=== PATIENT | male | born 1955 | race Caucasian/White ===

== ENCOUNTER 2023-08-22 14:04 | Outpatient (AMB) | payer OTHER, SELFPAY ==
--- NOTE | 2023-08-22 14:12 | A.OFFPC_ITS ---
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 Needs all medications refilled, along with one touch test strips and lancets. Vp Patient Required: No Allergies No Known Allergies Allergy (Verified 08/22/23 14:13) Medication List - Last Reconciled 08/22/23 by Negra Dodd MD apixaban (Eliquis) 5 mg PO BID aspirin 81 mg PO DAILY azelastine intranasal chlorthalidone 25 mg PO DAILY cholecalciferol (vitamin D3) 25 mcg PO DAILY ezetimibe 10 mg PO DAILY fluticasone propionate 50 mcg/actuation sprays intranasal gabapentin 800 mg PO TID multivitamin 1 tab PO DAILY rosuvastatin 40 mg PO DAILY semaglutide (Ozempic) mg subcut tamsulosin 0.4 mg PO DAILY Tobacco use date assessed: 08/22/23 Fall risk assessment: 2 + Falls in past year Last assessed Fall Risk: 08/22/23 Dental Screening Dental Screen Date: 08/22/23 Did you have a dental visit in the last 12 months?: Yes Did you have a dental problem in the last 6 months where you did not have access to dental care?: No Was dental information given to patient?: Patient has dentist HPI HPI Comments History of Present Illness Details The patient is a 68 year old male with a past medical history of diet controlled type 2 DM, history of ?TIA, htn, hld, BPH, DEVIN, DDD LS spine, neck, presenting for follow up Chronic pain -DDD lumbar spine. Issues with low back pain, sciatica. Has seen NS, PM&R. He responds well to short steroid course when symptoms flare. -Cervical DD-h/o MRI 2018 with severe bi lateral foraminal stenosis C6-C7. -Shoulder pain: MRI with partial rotator cuff tears, AC joint widening. Undwent shoulder repair. A few months later felt like he moved it out of place. Pain levels have decreased over the past few months CV: Afib on ILR. Follows with cardiology. Placed on AC. BP soft. Reports sometimes lightheaded upon standing. No recent leg or ankle swelling Neuro: Previous worry and worsening memory, dysarthria. In 2019 had what was later thought to be a TIA. When he was walking he saw flashes of light. He had suddenly developed weakness in the right leg. This persisted for 8 months before resolving. Saw 2 neurologist-MRI reviewed and a few small vessel T2 lesions, 1 in basal ganglia, cervical MRI, chem, CBC lyme, ESR, MARIA ISABEL. LS MRI with DJD. 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 In absence of motor weakness and with continue dysarthria and fatigue presumed TIA ROS CONSTITUTIONAL: Denies weight loss, fever and chills. HEENT: Denies changes in vision and hearing. RESPIRATORY: Denies SOB and cough. CV: Denies palpitations and CP GI: Denies abdominal pain, nausea, vomiting and diarrhea. : Denies dysuria and urinary frequency. MSK: Denies new myalgia and joint pain. SKIN: Denies rash and pruritus. NEUROLOGICAL: Denies headache PSYCHIATRIC: Denies recent changes in mood. PHYSICAL EXAM: GENERAL: Alert and oriented x 3. NAD EYES: EOMI. Anicteric. HENT: Moist mucous membranes. No scleral icterus. No cervical lymphadenopathy. LUNGS: Clear to auscultation bilaterally. CARDIOVASCULAR: Regular rate and rhythm. No murmur. No JVD. ABDOMEN: Soft, non-tender +bs EXTREMITIES: No edema. Non-tender. SKIN: No rashes or lesions. Warm. NEUROLOGIC: No focal neurological deficits. CN II-XII grossly intact PSYCHIATRIC: Cooperative. Appropriate mood and affect [facility] Medical History (Updated 08/23/23 @ 15:24 by Negra Dodd MD) Type 2 diabetes mellitus Sternoclavicular sprain Polyneuropathy Persistent cough DEVIN (obstructive sleep apnea) Obesity, Class I, BMI 30-34.9 HTN (hypertension) Hyperlipemia Erectile dysfunction DDD (degenerative disc disease), cervical Cervical radiculitis BPH (benign prostatic hyperplasia) Afib Arthritis Surgical History (Updated 08/22/23 @ 14:33 by Jania Huizar CMA) History of total right knee replacement Status post left knee replacement Hx of colonoscopy Social History (Updated 08/22/23 @ 14:32 by Jania Huizar CMA) Housing: House Patient Tobacco Use Status: Never used Tobacco e-Cigarette/Vaping Use: Never Used Second Hand Smoke Exposure: Yes service: Yes Current occupational status: employed 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 1. Little interest or pleasure in doing things: not at all 2. Feeling down, depressed, or hopeless: not at all 3. Trouble falling or staying asleep, or sleeping too much: not at all 4. Feeling tired or having little energy: not at all 5. Poor appetite or overeating: not at all 6. Feeling bad about yourself - or that you are a failure or have let yourself or your family down: not at all 7. Trouble concentrating on things, such as reading the newspaper or watching television: not at all 8. Moving or speaking so slowly that other people could have noticed. Or the opposite - being so fidgety or restless that you have been moving around a lot more than usual: not at all 9. Thoughts that you would be better off or of hurting yourself in some way: not at all Total score: 0 Depression Screening Interpretation: Negative (neg) Depression Screening Done: Yes 05602 - PHQ-9 Billing: Yes Source: Developed by Drs. Lopez Maxwell, Cristela Gunderson, Yung Arreola and colleagues, with an educational heydi from [employer]. Thrive Questionnaire Date Thrive assessed: 08/22/23 I am a: Patient What is your living situation today?: I have a steady place to live Within the past 12 months, did the food you bought not last and you didn't have the money to get more?: Never true Within the past 12 months, did you worry whether your food would run out before you got money to buy more?: Never true Do you have trouble paying for medicines?: No Do you have trouble getting transportation to medical appointments?: No Do you have trouble paying your heating and electricity bill?: No Do you have trouble taking care of your child, family member or friend?: No Do you have trouble with day-to-day activities such as bathing, preparing meals, shopping, managing finances, etc.?: No Are you currently unemployed and looking for a job?: No Are you interested in more education?: No Please select the resources that you would like help with: None Currently or been in a relationship where the following occur: no concerns reported THRIVE Score: 0 AUDIT C Alcohol Use Questionnaire (AUDIT-C) 1. How often do you have a drink containing alcohol?: Never (past) 3. How often do you have six or more drinks on one occasion?: Never Total Score: 0 VERENICE-7 AMB Questionnaire VERENICE-7 Date VERENICE - 7 assessed: 08/22/23 Feeling nervous, anxious, or on edge: 0 = Not at all Not being able to stop or control worryin = Not at all Worrying too much about different things: 0 = Not at all Trouble relaxin = Not at all Being so restless that it is hard to sit still: 0 = Not at all Becoming easily annoyed or irritable: 0 = Not at all Feeling afraid as if something awful might happen: 0 = Not at all Total VERENICE-7 score (0-4 normal; 5-9 mild; 10-14 moderate; 15-21 severe): 0 Source: Developed by Drs. Lopez Maxwell, Cristela Gunderson, Yung Arreola and colleagues, with an educational heydi from [employer]. VERENICE-7 Assessment Billing VERENICE-7 Assessment Tool: VERENICE-7 Assessment 51917 Physical exam (Primary Care) Vital Signs: Last Vital Signs Temp 98.4 F 08/22/23 14:23 Pulse 70 08/22/23 14:23 Resp 14 08/22/23 14:23 BP 96/70 08/22/23 14:23 Pulse Ox 96 08/22/23 14:23 Oxygen Delivery Method Room Air 08/22/23 14:23 BMI result Body Mass Index 44.1 Tobacco/Smoking Status: Tobacco use Status Tobacco use date assessed 08/22/23 08/22/23 14:20 Patient Tobacco Use Status Never used Tobacco 08/22/23 14:32 e-Cigarette/Vaping Use Never Used 08/22/23 14:32 PHQ-9: PHQ-9 Score PHQ-9: Total score 0 08/22/23 15:01 Depression Screening Interpretation: Negative (neg) Thrive Assessment: Date of Thrive Assessment Date Thrive assessed 08/22/23 08/22/23 14:35 Currently or been in a relationship where the following occur: no concerns reported Assessment and Plan Assessment & Plan (1) Type 2 diabetes mellitus: Code(s): E11.9 - Type 2 diabetes mellitus without complications Qualifiers: Diabetes mellitus joint terminal attack controller insulin use: without joint terminal attack controller use Diabetes mellitus complication status: with other specified complication Qualified Code(s): E11.69 - Type 2 diabetes mellitus with other specified complication Plan: Controlled. Increase ozempic hopefully will impart some additional weight loss (2) Paroxysmal atrial fibrillation: Code(s): I48.0 - Paroxysmal atrial fibrillation Plan: referral for consideration of watchman (3) HTN (hypertension): Code(s): I10 - Essential (primary) hypertension Qualifiers: Hypertension type: primary hypertension Qualified Code(s): I10 - Essential (primary) hypertension (4) Erectile dysfunction: Code(s): N52.9 - Male erectile dysfunction, unspecified Qualifiers: Erectile dysfunction type: due to other secondary cause Qualified Code(s): N52.1 - Erectile dysfunction due to diseases classified elsewhere Plan: stable (5) Type 2 diabetes, controlled, with peripheral neuropathy: Code(s): E11.42 - Type 2 diabetes mellitus with diabetic polyneuropathy Plan: stable on gabapentin (6) Type 2 diabetes, controlled, with peripheral circulatory disorder: Code(s): E11.51 - Type 2 diabetes mellitus with diabetic peripheral angiopathy without gangrene Orders: Orders Hemoglobin A1c 08/22/23 E11.9 - Type 2 diabetes mellitus without complications, E78.5 - Hyperlipidemia, unspecified, I10 - Essential (primary) hypertension, I48.0 - Paroxysmal atrial fibrillation Comprehensive Met. Panel 08/22/23 E11.9 - Type 2 diabetes mellitus without complications, E78.5 - Hyperlipidemia, unspecified, I10 - Essential (primary) hy pertension, I48.0 - Paroxysmal atrial fibrillation Microalbumin, Random (w Creat) 08/22/23 E11.9 - Type 2 diabetes mellitus without complications, E78.5 - Hyperlipidemia, unspecified, I10 - Essential (primary) hypertension, I48.0 - Paroxysmal atrial fibrillation Lipid Panel 08/22/23 E11.9 - Type 2 diabetes mellitus without complications, E78.5 - Hyperlipidemia, unspecified, I10 - Essential (primary) hypertension, I48.0 - Paroxysmal atrial fibrillation Prostate Specific Antigen 08/22/23 E11.9 - Type 2 diabetes mellitus without complications, E78.5 - Hyperlipidemia, unspecified, I10 - Essential (primary) hypertension, I48.0 - Paroxysmal atrial fibrillation Complete Blood Count Auto Diff 08/22/23 E11.9 - Type 2 diabetes mellitus without complications, E78.5 - Hyperlipidemia, unspecified, I10 - Essential (primary) hypertension, I48.0 - Paroxysmal atrial fibrillation Referrals Cardiology Referral I48.0 - Paroxysmal atrial fibrillation Medications: New apixaban (Eliquis) 5 mg PO BID 90 tabs 3RF azelastine 2 sprays intranasal DAILY 30 days 30 mL 3RF ezetimibe 10 mg PO DAILY 90 tabs 3RF gabapentin 800 mg PO TID 90 days 270 tabs 3RF chlorthalidone 25 mg PO DAILY 90 days 90 tabs 3RF fluticasone propionate 50 mcg/actuation 2 sprays intranasal DAILY 30 days 16 grams 3RF rosuvastatin 40 mg PO DAILY 90 days 90 tabs 3RF tamsulosin 0.4 mg PO DAILY 90 days 90 caps 3RF semaglutide 1 mg (0.75 mL) subcut QWEEK 9 mL 3RF Coding Level of Care Code Tele Est Pt Level 5 (59276) Complex EM visit Add On G2211 Diagnoses Type 2 diabetes mellitus with other specified complication, without long-term current use of insulin E11.69 Diabetes mellitus joint terminal attack controller insulin use: without joint terminal attack controller use Diabetes mellitus complication status: with other specified complication Paroxysmal atrial fibrillation I48.0 Primary hypertension I10 Hypertension type: primary hypertension Erectile dysfunction due to diseases classified elsewhere N52.1 Erectile dysfunction type: due to other secondary cause Type 2 diabetes, controlled, with peripheral neuropathy E11.42 Type 2 diabetes, controlled, with peripheral circulatory disorder E11.51 Additional Codes VERENICE-7 Assessment Billing - VERENICE-7 Assessment Tool: VERENICE-7 Assessment 26142 ([id number]) Time Spent (min) 47
[2023-08-22 14:23] VITALS: BP 96/70; PULSE 70; RESP 14; TEMP 36.9; O2SAT 96; BMI 44.1
== END 2023-08-22 15:06 | disposition home or self-care (01) ==
PROVIDERS: Visit Provider Internal Medicine
DX: E11.69 Type 2 diabetes mellitus with other specified complication (principal); E11.42 Type 2 diabetes mellitus with diabetic polyneuropathy; I48.0 Paroxysmal atrial fibrillation; E11.51 Type 2 diabetes mellitus with diabetic peripheral angiopathy without gangrene; I10 Essential (primary) hypertension; N52.1 Erectile dysfunction due to diseases classified elsewhere
CPT/HCPCS: 99215; G2211

== ENCOUNTER 2023-11-13 15:03 | Outpatient (REF) | payer OTHER, SELFPAY ==
[2023-11-13 18:17] LABS: Creatinine Urine 117.26 mg/dL; Microalbum/Creatinine Ratio Ur 5.9 ug/mg cr (<30)
[2023-11-13 22:44] LABS: MANUAL DIFF FLAG NO
[2023-11-13 22:47] LABS: Basophils Absolute Auto 0.1 X10*3/uL (0.0-0.2); Basophils Percent Auto 1.3 % (0-2); Eosinophils Absolute Auto 0.5 X10*3/uL (0.0-0.4); Eosinophils Percent Auto 7.7 % (0-4); Hematocrit 40.6 % (42.0-52.0); Hemoglobin 13.7 g/dl (14.0-18.0); Imm Gran Abs Auto 0.02 X10*3/uL (0.00-0.03); Imm Gran Pct Auto 0.3 % (0.0-0.4); Lymphocytes Absolute Auto 1.9 X10*3/uL (1.2-4.9); Lymphocytes Percent Auto 30.6 % (20-40); Mean Corpuscular HGB Conc 33.7 g/dl (31.0-36.0); Mean Corpuscular Hemoglobin 30.6 pg (27.0-33.0); Mean Corpuscular Volume 90.6 fL (80.0-98.0); Mean Platelet Volume 9.6 fL (9.4-12.4); Monocytes Absolute Auto 0.6 X10*3/uL (0.1-1.2); Monocytes Percent Auto 10.2 % (2-11); Neutrophils Percent Auto 49.9 % (45-73); Platelet Count 279 X10*3/uL (160-400); Red Blood Count 4.48 X10*6/uL (4.60-5.80); Red Cell Distribution Width 12.9 % (11.0-16.0); White Blood Count 6.1 X10*3/uL (4.8-10.8)
[2023-11-14 05:31] LABS: Estimated Average Glucose 126 mg/dL
== END 2023-11-13 15:04 | disposition home or self-care (01) ==
LOC: HO.WFDLDS 15:03
PROVIDERS: Visit Provider Internal Medicine
DX: I48.0 Paroxysmal atrial fibrillation (principal); E11.9 Type 2 diabetes mellitus without complications; I10 Essential (primary) hypertension; E78.5 Hyperlipidemia, unspecified
CPT/HCPCS: 36415; 82043; 82570; 83036; 85025

== ENCOUNTER 2023-11-14 14:32 | Outpatient (AMB) | payer OTHER, SELFPAY ==
--- NOTE | 2023-11-14 14:35 | A.OFFPC_ITS ---
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 Chronic neuropathy. Eye exam up to date Chronic pain -DDD lumbar spine. Issues with low back pain, sciatica. Has seen NS, PM&R. He responds well to short steroid course when symptoms flare. -Cervical DD-h/o MRI 2018 with severe bi lateral foraminal stenosis C6-C7. -Shoulder pain: MRI with partial rotator cuff tears, AC joint widening. Undwent shoulder repair. A few months later felt like he moved it out of place. Pain levels have decreased over the past few months CV: Afib on ILR. Follows with cardiology. Placed on AC. BP soft. Reports sometimes lightheaded upon standing. No recent leg or ankle swelling Neuro: Previous worry and worsening memory, dysarthria. In 2019 had what was later thought to be a TIA. When he was walking he saw flashes of light. He had suddenly developed weakness in the right leg. This persisted for 8 months before resolving. Saw 2 neurologist-MRI reviewed and a few small vessel T2 lesions, 1 in basal ganglia, cervical MRI, chem, CBC lyme, ESR, MARIA ISABEL. LS MRI with DJD. 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 In absence of motor weakness and with continue dysarthria and fatigue presumed TIA ROS CONSTITUTIONAL: Denies weight loss, fever and chills. HEENT: Denies changes in vision and hearing. RESPIRATORY: Denies SOB and cough. CV: Denies palpitations and CP GI: Denies abdominal pain, nausea, vomiting and diarrhea. : Denies dysuria and urinary frequency. MSK: Denies new myalgia and joint pain. SKIN: Denies rash and pruritus. NEUROLOGICAL: Denies headache PSYCHIATRIC: Denies recent changes in mood. PHYSICAL EXAM: GENERAL: Alert and oriented x 3. NAD EYES: EOMI. Anicteric. HENT: Moist mucous membranes. No scleral icterus. No cervical lymphadenopathy. LUNGS: Clear to auscultation bilaterally. CARDIOVASCULAR: Regular rate and rhythm. No murmur. No JVD. ABDOMEN: Soft, non-tender +bs EXTREMITIES: No edema. Non-tender. SKIN: No rashes or lesions. Warm. NEUROLOGIC: No focal neurological deficits. CN II-XII grossly intact PSYCHIATRIC: Cooperative. Appropriate mood and affect [facility] Medical History (Updated 11/19/23 @ 10:51 by Negra Dodd MD) Type 2 diabetes mellitus Sternoclavicular sprain Polyneuropathy Persistent cough DEVIN (obstructive sleep apnea) Obesity, Class I, BMI 30-34.9 HTN (hypertension) Hyperlipemia Erectile dysfunction DDD (degenerative disc disease), cervical Cervical radiculitis BPH (benign prostatic hyperplasia) Afib Arthritis Surgical History (Updated 08/22/23 @ 14:33 by Jania Huizar CMA) History of total right knee replacement Status post left knee replacement Hx of colonoscopy Social History (Updated 08/22/23 @ 14:32 by Jania Huizar CMA) Housing: House Patient Tobacco Use Status: Never used Tobacco e-Cigarette/Vaping Use: Never Used Second Hand Smoke Exposure: Yes service: Yes Current occupational status: employed 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 [employer] Current occupational exposures/hazards: No Cognitive needs: No Hearing needs: No Vision needs: No Questionnaire Thrive Questionnaire Date Thrive assessed: 08/22/23 I am a: Patient What is your living situation today?: I choose not to answer this question Within the past 12 months, did the food you bought not last and you didn't have the money to get more?: I choose not to answer this question Within the past 12 months, did you worry whether your food would run out before you got money to buy more?: I choose not to answer this question Do you have trouble paying for medicines?: I choose not to answer this question Do you have trouble getting transportation to medical appointments?: I choose not to answer this question Do you have trouble paying your heating and electricity bill?: I choose not to answer this question Do you have trouble taking care of your child, family member or friend?: I choose not to answer this question Do you have trouble with day-to-day activities such as bathing, preparing meals, shopping, managing finances, etc.?: I choose not to answer this question Are you currently unemployed and looking for a job?: I choose not to answer this question Are you interested in more education?: I choose not to answer this question Please select the resources that you would like help with: None Currently or been in a relationship where the following occur: I choose not to answer THRIVE Score: 0 AUDIT C Alcohol Use Questionnaire (AUDIT-C) 1. How often do you have a drink containing alcohol?: Never Total Score: 0 VERENICE-7 AMB Questionnaire VERENICE-7 Date VERENICE - 7 assessed: 08/22/23 Feeling nervous, anxious, or on edge: 0 = Not at all Not being able to stop or control worryin = Not at all Worrying too much about different things: 0 = Not at all Trouble relaxin = Not at all Being so restless that it is hard to sit still: 0 = Not at all Becoming easily annoyed or irritable: 0 = Not at all Feeling afraid as if something awful might happen: 0 = Not at all Total VERENICE-7 score (0-4 normal; 5-9 mild; 10-14 moderate; 15-21 severe): 0 Source: Developed by Drs. Lopez Maxwell, Cristela Gunderson, Yung Arreola and colleagues, with an educational heydi from [employer]. Physical exam (Primary Care) Vital Signs: Last Vital Signs Temp 97.7 F 11/14/23 14:43 Pulse 63 11/14/23 14:43 Resp 16 11/14/23 14:43 BP 124/80 11/14/23 14:43 Pulse Ox 98 11/14/23 14:43 Oxygen Delivery Method Room Air 11/14/23 14:43 Tobacco/Smoking Status: Tobacco use Status Tobacco use date assessed 11/14/23 11/14/23 14:46 Patient Tobacco Use Status Never used Tobacco 11/14/23 14:35 e-Cigarette/Vaping Use Never Used 11/14/23 14:35 Thrive Assessment: Date of Thrive Assessment Date Thrive assessed 08/22/23 11/14/23 14:35 Currently or been in a relationship where the following occur: I choose not to answer Assessment and Plan Assessment & Plan (1) Type 2 diabetes, controlled, with peripheral neuropathy: Code(s): E11.42 - Type 2 diabetes mellitus with diabetic polyneuropathy Plan: Controlled on current medication. (2) HTN (hypertension): Code(s): I10 - Essential (primary) hypertension Qualifiers: Hypertension type: primary hypertension Qualified Code(s): I10 - Essential (primary) hypertension Plan: controlled on current medication (3) Lumbar radiculopathy: Code(s): M54.16 - Radiculopathy, lumbar region Plan: stable. chronic neuropathy pain Orders: Orders Hemoglobin A1c 3 Months E11.51 - Type 2 diabetes mellitus with diabetic peripheral angiopathy without gangrene, I10 - Essential (primary) hypertension Coding Level of Care Code Est Pt Level 4 (13148) Complex EM visit Add On G2211 Diagnoses Type 2 diabetes, controlled, with peripheral neuropathy E11.42 Primary hypertension I10 Hypertension type: primary hypertension Lumbar radiculopathy M54.16
[2023-11-14 14:43] VITALS: BP 124/80; PULSE 63; RESP 16; TEMP 36.5; O2SAT 98
== END 2023-11-14 15:11 | disposition home or self-care (01) ==
PROVIDERS: Visit Provider Internal Medicine
DX: E11.42 Type 2 diabetes mellitus with diabetic polyneuropathy (principal); I10 Essential (primary) hypertension; M54.16 Radiculopathy, lumbar region
CPT/HCPCS: 99214; G2211

== ENCOUNTER 2024-02-15 07:42 | Outpatient (REF) | payer OTHER, SELFPAY ==
[2024-02-15 11:46] LABS: Estimated Average Glucose 123 mg/dL; Hemoglobin A1c % 5.9 % (<6.0); Total Hemoglobin (HGBA1C) 3746.0837 umol/L
[2024-02-15 12:09] LABS: Prostate Specific Antigen 1.13 ng/mL (<0.05-4.0)
[2024-02-15 12:14] LABS: Alanine Aminotransferase 47 U/L (0-40); Albumin Level 4.1 g/dL (3.5-5.0); Alkaline Phosphatase 60 U/L (39-117); Anion Gap 12 (12-20); Aspartate Amino Transferase 46 U/L (5-37); Bilirubin Total 0.6 mg/dL (0.0-1.0); Blood Urea Nitrogen 16 mg/dL (9-16); Calcium 11.1 mg/dL (8.4-10.2); Carbon Dioxide 30 mmol/L (22-29); Chloride 103 mmol/L (96-108); Cholesterol 150 mg/dL (<200); Estimated Glomerular Filt Rate > 60; Glucose Random 129 mg/dL (60-115); HDL Cholesterol 41 mg/dL (>40); LDL Cholesterol Calculated 84 mg/dL (<100); Potassium 3.7 mmol/L (3.3-5.1); Sodium 141 mmol/L (135-145); Total Protein 7.5 g/dL (6.5-8.0); Triglycerides 126 mg/dL (<150)
== END 2024-02-15 07:43 | disposition home or self-care (01) ==
LOC: HO.WFDLDS 07:42
PROVIDERS: Visit Provider Internal Medicine
DX: I48.0 Paroxysmal atrial fibrillation (principal); E11.9 Type 2 diabetes mellitus without complications; I10 Essential (primary) hypertension; E78.5 Hyperlipidemia, unspecified; E11.51 Type 2 diabetes mellitus with diabetic peripheral angiopathy without gangrene; Z12.5 Encounter for screening for malignant neoplasm of prostate
CPT/HCPCS: 36415; 80053; 80061; 83036; 84153

== ENCOUNTER 2024-02-23 09:23 | Outpatient (AMB) | payer OTHER, SELFPAY ==
--- NOTE | 2024-02-23 09:32 | MHC.PC.OV ---
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 Chronic neuropathy. Eye exam up to date Chronic pain -DDD lumbar spine. Issues with low back pain, sciatica. Has seen NS, PM&R. He responds well to short steroid course when symptoms flare. -Cervical DD-h/o MRI 2019 with severe bilateral foraminal stenosis C6-C7. -Shoulder pain: MRI with partial rotator cuff tears, AC joint widening. Undwent shoulder repair. A few months later felt like he moved it out of place. Pain levels have decreased over the past few months CV: Found Afib on ILR. Follows with cardiology. On AC Placed on AC. BP soft. Reports sometimes lightheaded upon standing. No recent leg or ankle swelling Neuro: Previous worry and worsening memory, dysarthria. In 2019 had what was later thought to be a TIA. When he was walking he saw flashes of light. He had suddenly developed weakness in the right leg. This persisted for 8 months before resolving. Saw 2 neurologist-MRI reviewed and a few small vessel T2 lesions, 1 in basal ganglia, cervical MRI, chem, CBC lyme, ESR, MARIA ISABEL. LS MRI with DJD. 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 In absence of motor weakness and with continue dysarthria and fatigue presumed TIA Some bilateral foot pain. upcoming appt with [facility] Abdominal pain and bloating. Increased with coughing, no constipation ROS see HPI PHYSICAL EXAM: GENERAL: Alert and oriented x 3. NAD EYES: EOMI. Anicteric. HENT: Moist mucous membranes. No scleral icterus. No cervical lymphadenopathy. LUNGS: Clear to auscultation bilaterally. CARDIOVASCULAR: Regular rate and rhythm. No murmur. No JVD. ABDOMEN: Soft, mild tender to palpation +bs EXTREMITIES: No edema. Non-tender. SKIN: No rashes or lesions. Warm. NEUROLOGIC: No focal neurological deficits. CN II-XII grossly intact PSYCHIATRIC: Cooperative. Appropriate mood and affect [facility] Medical History Type 2 diabetes mellitus Sternoclavicular sprain Polyneuropathy Persistent cough DEVIN (obstructive sleep apnea) Obesity, Class I, BMI 30-34.9 HTN (hypertension) Hyperlipemia Erectile dysfunction DDD (degenerative disc disease), cervical Cervical radiculitis BPH (benign prostatic hyperplasia) Afib Arthritis Surgical History History of total right knee replacement Status post left knee replacement Hx of colonoscopy Social History Housing: House Alcohol intake: current Patient Tobacco Use Status: Never used Tobacco e-Cigarette/Vaping Use: Never Used Second Hand Smoke Exposure: Yes service: Yes Current occupational status: employed 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 Current occupational exposures/hazards: No Cognitive needs: No Hearing needs: No Vision needs: No Questionnaire PHQ-9 Over the last 2 weeks, how often have you been bothered by any of the following problems? 1. Little interest or pleasure in doing things: not at all 2. Feeling down, depressed, or hopeless: not at all 3. Trouble falling or staying asleep, or sleeping too much: not at all 4. Feeling tired or having little energy: not at all 5. Poor appetite or overeating: not at all 6. Feeling bad about yourself - or that you are a failure or have let yourself or your family down: not at all 7. Trouble concentrating on things, such as reading the newspaper or watching television: not at all 8. Moving or speaking so slowly that other people could have noticed. Or the opposite - being so fidgety or restless that you have been moving around a lot more than usual: not at all 9. Thoughts that you would be better off or of hurting yourself in some way: not at all Total score: 0 Depression Screening Interpretation: Negative Depression Screening Done: Yes 16840 - PHQ-9 Billing: Yes Source: Developed by Drs. Lopez Maxwell, Cristela Gunderson, Yung Arreola and colleagues, with an educational heydi from [employer]. Thrive Questionnaire Date Thrive assessed: 02/23/24 I am a: Patient What is your living situation today?: I choose not to answer this question Within the past 12 months, did the food you bought not last and you didn't have the money to get more?: I choose not to answer this question Within the past 12 months, did you worry whether your food would run out before you got money to buy more?: I choose not to answer this question Do you have trouble paying for medicines?: I choose not to answer this question Do you have trouble getting transportation to medical appointments?: I choose not to answer this question Do you have trouble paying your heating and electricity bill?: I choose not to answer this question Do you have trouble taking care of your child, family member or friend?: I choose not to answer this question Do you have trouble with day-to-day activities such as bathing, preparing meals, shopping, managing finances, etc.?: I choose not to answer this question Are you currently unemployed and looking for a job?: I choose not to answer this question Are you interested in more education?: I choose not to answer this question Please select the resources that you would like help with: None Currently or been in a relationship where the following occur: I choose not to answer THRIVE Score: 0 VERENICE-7 AMB Questionnaire VERENICE-7 Date VERENICE - 7 assessed: 08/22/23 Source: Developed by Drs. Lopez Maxwell, Cristela Gunderson, Yung Arreola and colleagues, with an educational heydi from [employer]. Physical exam (Primary Care) Vital Signs: Last Vital Signs Pulse 72 02/23/24 09:36 BP 108/74 02/23/24 09:36 Pulse Ox 95 02/23/24 09:36 Oxygen Delivery Method Room Air 02/23/24 09:36 BMI result Body Mass Index 34.2 Tobacco/Smoking Status: Tobacco use Status Tobacco use date assessed 11/14/23 02/23/24 09:33 Patient Tobacco Use Status Never used Tobacco 02/23/24 09:33 e-Cigarette/Vaping Use Never Used 02/23/24 09:33 PHQ-9: PHQ-9 Score PHQ-9: Total score 0 02/23/24 09:43 Depression Screening Interpretation: Negative Thrive Assessment: Date of Thrive Assessment Date Thrive assessed 02/23/24 02/23/24 09:39 Currently or been in a relationship where the following occur: I choose not to answer Coding Level of Care Code Est Pt Level 4 (32942) Diagnoses Hypercalcemia E83.52 Lumbar radiculopathy M54.16 Type 2 diabetes, controlled, with peripheral circulatory disorder E11.51 Additional Codes PHQ-9 - 30455 - PHQ-9 Billing: Yes ([id number]) Assessment & Plan Assessment & Plan (1) Hypercalcemia: Code(s): E83.52 - Hypercalcemia Category: Medical Plan: Labs ordered Is on vitamin D (2) Lumbar radiculopathy: Code(s): M54.16 - Radiculopathy, lumbar region Category: Medical Plan: controlled Perhaps contributring to foot pain (3) Type 2 diabetes, controlled, with peripheral circulatory disorder: Code(s): E11.51 - Type 2 diabetes mellitus with diabetic peripheral angiopathy without gangrene Category: Medical Plan: controlled. annual eye exams Orders: Orders Vitamin D 25-OH (D2 and D3) Today E83.52 - Hypercalcemia Vitamin D 1,25 dihydroxy Today E83.52 - Hypercalcemia Protein Electrophoresis, Serum Today E83.52 - Hypercalcemia Protein Electrophoresis,Ran Ur Today E83.52 - Hypercalcemia Parathyroid Hormone Intact Today E83.52 - Hypercalcemia Phosphorus Today E83.52 - Hypercalcemia US abdomen complete Today R10.31 - Right lower quadrant pain, R10.32 - Left lower quadrant pain Rheumatoid Factor Today M79.671 - Pain in right foot, M79.672 - Pain in left foot Medications: New cyclobenzaprine 10 mg PO TID 60 tabs 3RF 30 days
[2024-02-23 09:36] VITALS: BP 108/74; PULSE 72; O2SAT 95; BMI 34.2
== END 2024-02-23 10:13 | disposition home or self-care (01) ==
PROVIDERS: PCP Internal Medicine; Visit Provider Internal Medicine
DX: E83.52 Hypercalcemia (principal); M54.16 Radiculopathy, lumbar region; E11.51 Type 2 diabetes mellitus with diabetic peripheral angiopathy without gangrene

== ENCOUNTER → 2024-02-23 09:23 | Outpatient (BNVA) | payer OTHER, SELFPAY | PROVIDERS: PCP Internal Medicine; Visit Provider Internal Medicine | DX: E83.52 Hypercalcemia (principal); M54.16 Radiculopathy, lumbar region; E11.51 Type 2 diabetes mellitus with diabetic peripheral angiopathy without gangrene | CPT/HCPCS: 96127 ==

== ENCOUNTER 2024-02-23 10:18 | Outpatient (REF) | payer OTHER, SELFPAY ==
[2024-02-23 13:04] LABS: Phosphorus 3.6 mg/dL (2.7-4.5)
[2024-02-23 13:07] LABS: Parathyroid Hormone Intact 19.9 pg/mL (8.7-77.1); Rheumatoid Factor < 13.0 IU/mL (<15.0)
[2024-02-26 09:49] LABS: Prot Elec - Alpha1 0.3 g/dL (0.2-0.3); Prot Elec - Alpha2 0.6 g/dL (0.5-0.9); Prot Elec - Beta 1 0.5 g/dL (0.4-0.6); Prot Elec - Beta 2 0.3 g/dL (0.2-0.5); Prot Elec - Gamma 1.2 g/dL (0.8-1.7); Prot Elec - Total Protein 6.9 g/dL (6.1-8.1)
[2024-02-28 15:09] LABS: Vitamin D 25-OH, D2 <4 ng/mL; Vitamin D 25-OH, D3 45 ng/mL; Vitamin D 25-OH, Total 45 ng/mL (30-100)
[2024-02-29 23:12] LABS: VITAMIN D (1,25 OH) D3 26 pg/mL; Vit D (1,25-Dihydroxy) Total 26 pg/mL (18-72); Vitamin D (1,25 OH) D2 <8 pg/mL
== END 2024-02-23 10:19 | disposition home or self-care (01) ==
LOC: HO.WFDLDS 10:18
PROVIDERS: Visit Provider Internal Medicine
DX: E83.52 Hypercalcemia (principal); M79.671 Pain in right foot; M79.672 Pain in left foot
CPT/HCPCS: 36415; 82306; 82652; 83970; 84100; 84165; 86431

== ENCOUNTER 2024-02-27 11:45 | Outpatient (REF) | payer OTHER, SELFPAY ==
[2024-03-04 07:28] LABS: PEU-Rand. Prot/Creat Ratio 100 mg/g creat (25-148); PEU-Random Ur. Gamma Globulin 0 %; PEU-Random Urine A1 Globulin 0 %; PEU-Random Urine A2 Globulin 0 %; PEU-Random Urine Albumin 100 %; PEU-Random Urine Beta Globulin 0 %; PEU-Random Urine Creatinine 211 mg/dL (20-320); PEU-Random Urine Protein 21 mg/dL (5-25)
== END 2024-02-27 11:46 | disposition home or self-care (01) ==
LOC: HO.LNP 11:45
PROVIDERS: Visit Provider Internal Medicine
DX: E83.52 Hypercalcemia (principal)
CPT/HCPCS: 82570; 84156; 84166

== ENCOUNTER 2024-03-15 09:22 | Outpatient (REF) | payer OTHER, SELFPAY ==
--- NOTE | ~2024-03-15 | US_ITS ---
EXAMINATION: US ABDOMEN HISTORY: R10.31 - Right lower quadrant pain, abdominal pain TECHNIQUE: Real-time grayscale ultrasound imaging of the abdomen was performed and images were reviewed. COMPARISON: There are no prior studies for comparison. FINDINGS: Liver: The liver is normal in size, but demonstrates increased echotexture, suggestive of steatosis. No focal mass or intrahepatic biliary ductal dilatation is identified. There is normal hepatopedal flow in the portal vein. Gallbladder and biliary tree: The gallbladder is unremarkable, without evidence of calculi, wall thickening, or pericholecystic fluid. There is no sonographic Ford sign. The common bile duct is normal in caliber measuring 3 mm. Kidneys: The right kidney measures 11.4 cm in length. The left kidney measures 14.1 cm in length. There is a 5.3 x 5.4 x 4.4 cm cyst at the upper pole of the right kidney. The kidneys are otherwise unremarkable, without evidence of solid masses, hydronephrosis, or calculi. Pancreas: The pancreas is obscured by bowel gas. Spleen: The spleen is normal in size and contour, measuring 12.4 cm in length. Abdominal aorta and inferior vena cava: The visualized portions of the abdominal aorta and inferior vena cava are normal in caliber. There is no free fluid in the abdomen. US/US abdomen complete IMPRESSION: Increased hepatic echotexture, suggestive of steatosis. 5.3 x 5.4 x 4.4 cm right upper pole renal cyst. The pancreas is obscured by bowel gas. Electronically signed by: Lopez Castro MD 03/15/2024 10:46 AM KARRIE
== END 2024-03-15 09:23 | disposition home or self-care (01) ==
LOC: HO.US 09:22
PROVIDERS: PCP Internal Medicine; Visit Provider Internal Medicine
DX: R10.32 Left lower quadrant pain (principal); R10.31 Right lower quadrant pain
CPT/HCPCS: 76700

== ENCOUNTER → 2024-03-15 09:24 | Outpatient (BNV) | payer OTHER, SELFPAY | PROVIDERS: PCP Internal Medicine; Visit Provider Radiology Diagnostic Radiology | DX: K76.89 Other specified diseases of liver (principal); N28.1 Cyst of kidney, acquired | CPT/HCPCS: 76700 ==

== ENCOUNTER 2024-04-30 07:53 | Outpatient (REF) | payer OTHER, SELFPAY ==
--- OUTSIDE RECORDS SUMMARY | 2024-04-30 07:56 | XMS_ITS | Encounter Summary ---
Author Organization [facility] [place] [address] Care Team Providers Care Masonry Contractor Name Role Phone Negra Dodd MD Primary Care Provider [phone] Encounter Details Date Type Department Care Team (Late st Contact Info) Description 04/17/2024 11:45 AM EST Ancillary Procedure [facility] - [address] [facility] [address] [place] [phone] Social History Tobacco Use Types Packs/Day Years Used Date Smoking Tobacco: Never Smokeless Tobacco: Never Alcohol Use Standard Drinks/Week Comments Yes 0 (1 standard drink = 0.6 oz pur e alcohol) Sex and Gender Information Value Date Recorded Sex Assigned at Male 02/27/2024 11:57 AM EST Legal Sex Male 3:53 PM EST Gender Identity Male 02/27/2024 11:57 AM EST Sexual Orientation Straight 02/27/2024 11 :57 AM EST documented as of this encounter Plan of Treatment Upcoming Encounters Date Type Department Care Team (Late st Contact Info) Description 05/29/2024 9:40 AM EDT Office Visit [facility] [address] [place] [phone] Celestina Kohli PA [address] [place] [address] documented as of this encounter Procedures Procedure Name Priority Date/Time Associated Diagnosis Comments CARDIAC DEVICE CHECK- REMOTE- MURJ Routine 04/17/2024 11:44 AM EST documented in this encounter Results * Cardiac device check - Remote- MURJ (04/17/2024 11:44 AM EST) Date Time Interrogation Session [id number] CV DEVICE CHECK Type Interrogation Session Remote Device Initiated CV DEVICE CHECK Implantable Pulse Generator Registered Nurse Maternal Child BSX CV DEVICE CHECK Implantable Pulse Generator Type ILR CV DEVICE CHECK Implantable Pulse Generator Model [id number] CV DEVICE CHECK Implantable Pulse Generator Serial Number [id number] CV DEVICE CHECK Implantable Pulse Generator Implant Date [id number] CV DEVICE CHECK Battery Status End of Service CV DEVICE CHECK Date of Service 2024-04-17 CV DEVICE CHECK Anatomical Region Laterality Modality Device Interroga tion 04/11/2024 12:1 9 AM EST Impressions 04/17/2024 11:35 AM EST Normal Battery Depletion * Battery depletion rate appears normal * Current battery status: EOS * pt has not unplugged monitor and has cancelled EP DAHIANA appt x 2 to discuss options for ILR battery at end of life. Narrative Procedure Note Leyda Mosley MD - 04/17/2024 IMPRESSION: Normal Battery Depletion * Battery depletion rate appears normal * Current battery status: EOS * pt has not unplugged monitor and has cancelled EP DAHIANA appt x 2 todiscuss options for ILR battery at end of life. us Leyda Mosley MD CV IMPLANTABLE CARDIAC DEV ICE PROCEDURES Final Result documented in this encounter Visit Diagnoses Not on filedocumented in this encounter Care Teams Masonry Contractor Relationship Specialty Start Date End Date Negra Dodd MD PCP - General Internal Medicine 01/08/21 documented as of this encounter
--- OUTSIDE RECORDS SUMMARY | 2024-04-30 07:56 | XMS_ITS | Clinical Summary ---
Author Organization [address] [facility] Address [address] [place] [address] Phone Care Team Providers Care Sorting Livestock Worker Name Role Phone Negra Dodd MD Primary Care Provider [phone] Allergies No known active allergies Medications aspirin (ASPIR-81 ORAL) Take 1 tablet by mouth daily. Active blood sugar diagnostic (ONETOUCH ULTRA TEST MISC) Test glucose once weekly 0 Active OneTouch Ultra Test test strip Check blood glucose once weekly 0 Active multivit-min/iron /folic acid/K (ADULTS MULTIVITAMIN ORAL) Take 1 tablet by mouth daily. Active apixaban (ELIQUIS) 5 mg tablet Take 5 mg by mouth 2 times daily. 3 Active azelastine (ASTELIN) 137 mcg (0.1 %) nasal spray 2 Puffs by Nasal route 2 times daily. 3 Active chlorthalidone (HYGROTON) 25 mg tablet Take 1 Tablet by mouth daily. Active ezetimibe (ZETIA) 10 mg tablet TAKE 1 TABLET BY MOUTH EVERY DAY 4 Active fluticasone propionate (FLONASE) 50 mcg/actuation nasal spray 2 Sprays by Nasal route daily. 1 Active gabapentin (NEURONTIN) 800 mg tablet Take 1 Tablet by mouth 2 times daily. 9 Active rosuvastatin (CRESTOR) 40 mg tablet Take 1 Tablet by mouth daily. 4 Active semaglutide (Ozempic) 0.25 mg or 0.5 mg(2 mg/1.5 mL) injection pen Inject into the skin once a week. Active tamsulosin (FLOMAX) 0.4 mg 24 hr capsule TAKE 1 CAPSULE DAILY 0 Active Active Problems Problem Noted Date Diagnosed Date Coronary artery disease invo lving burns paiute coronary artery of burns [place] heart without angina pectoris 08/07/2023 Hyperlipidemia 08/07/2023 Paroxysmal atrial fibrillation 09/01/2022 Syncope and collapse 11/04/2020 Obstructive sleep apnea 02/26/2020 Overview (01/19/2024): [facility] Home Sleep Apnea Test: Date 02/18/2020; Wt 275#; BMI 34; TOSHIA (AHI) 6, AI 1; HI 5; Unclassified apneas 0; Obstructive apneas 8; Central apneas 0; Mixed apneas 0; hypopneas 36; average oxygen saturation 93% (lowest 84% without saturations <88% for 5% or more of study) - Obstructive Sleep Apnea - mild; mostly hypopneas with some obstructive apneas; without sleep related hypoventilation by 2019 home sleep apnea test. Thyroid nodule 12/17/2019 Overview (01/19/2024): 1.7 cm mid right lobe nodule on u/s 12/04/2019- FNA indicated and ordered, endo referral placed Mild concentric left ventricular hypertrophy (LV H) 09/26/2016 Type 2 diabetes mellitus, controlled 03/30/2015 Cardiomegaly 07/04/2012 BPH (benign prostatic hyperplasia) 06/14/2012 Diverticulitis of colon without hemorrhage 11/22 Overview (01/19/2024): Incidental finding at colonoscopy 11/23/2007. Laryngeal spasm 12/28/2006 Allergic rhinitis 09/15/2005 Cervicalgia 09/15/2005 Overview (01/19/2024): Disc Degeneration of lumbar or lumbosacral interverte bral disc 09/15/2005 Essential hypertension, benign 09/15/2005 Overweight 09/15/2005 Pure hypercholesterolemia 09/15/2005 Encounters Date Type Department Care Team Description 04/17/2024 11:45 AM EST Ancillary Procedure [facility] [address] [place] [address] 03/12/2024 12:00 PM EST Ancillary Procedure [facility] [address] [place] [address] 02/23/2024 4:15 PM EST Ancillary Procedure [facility] [address] [place] [address] 02/19/2024 Telephone [facility] [address] [place] [address] He Butt, RN appointment with EP DAHIANA 02/06/2024 8:25 PM EST Ancillary Procedure [facility] [address] [place] [address] from Last 3 Months Immunizations Name Administration Dates Next Due Influenza Quadravalent, MDCK , 0.5ml, with preservative (Flucelvax) 6mo and older 12/20/2017,01/04/2017 Influenza trivalent, with pr eservative (Fluzone; Afluria) 6mo and older 11/15/2019,11/16/2018,01/12/2016,12/25,03/17/2014,12/17/2012,11/23/2011 ,11/09/2010,01/14/2010,12/04/2007 Pneumococcal conjugate 13 va lent (Prevnar 13, PCV13) 2mo and older 12/25/2014 Pneumococcal polysaccharide 23 valent (Pneumovax 23) 2yo and older 12/17/2012,10/16/2007 Td Tetanus diptheria (Tdvax) 7yo and older 09/15/2005 Tdap Tetanus diptheria acell ular pertussis (Boostrix; Adacel) 7yo and older 02/16/2011 Zoster recombinant (Shingrix ) 19yo and older 01/05/2020 Surgical History Surgery Date Site/Laterality Comments LUMBAR LAMINECTOMY 2006 PROCEDURE: HISTORICAL LUMB LAMINECTOMY; COMMENT: COLONOSCOPY 11/23/2007 PROCEDURE: LA COLONOSCOPY FLX DX W/COLLJ SPEC WHEN PFRMD; COMMENT: diverticulosis Medical History Medical History Date Comments Essential hypertension, benign D X:Essential hypertension, benign Pure hypercholesterolemia DX:Pur e hypercholesterolemia Allergic rhinitis, cause unspecified DX:Allergic rhinitis, cause unspecified Overweight(278.02) 09/15/2005 DX:Overweight (278.02) Plantar fascial fibromatosis 09/15/2005 DX: Plantar fascial fibromatosis Degeneration of lumbar or agustin mbosacral intervertebral disc 09/15/2005 DX:Degeneration of lumbar or lumbosacral intervertebral disc Cervicalgia 09/15/2005 DX:Cervicalgia; COMMENT: Disc Laryngeal spasm 12/28/2006 DX:Laryngeal spa sm Diverticulosis of colon (wit hout mention of hemorrhage) 11/23/2007 DX:Diverticulosis of colon ( without mention of hemorrhage); COMMENT: Incidental finding at colonoscopy 11/23/2007. Special screening for malign ant neoplasms, colon 11/23/2007 DX:Special screening for mal ignant neoplasms, colon; COMMENT: Negative colonoscopy 11/23/2007, no colon cancer screening needed for 10 years. Type 2 diabetes mellitus, co ntrolled ([facility]/HCC) 03/30/2015 DX:Type 2 diabetes mellitus, controlled ([facility]) Flexor tenosynovitis of finger 07/28/2016 D X:Flexor tenosynovitis of finger; COMMENT: Dr Jorge Núñez Family History Medical History Relation Name Comments Arthritis Father CABG Father Heart attack Father Other: Kidney removed Father cancer Heart failure Maternal Grandfather Heart failure Maternal Grandmother Other cancer Mother Thyroid cancer Thyroid disease Mother Heart attack Paternal Grandfather Hyperlipidemia Paternal Grandmother Relation Name Status Comments Father (Age 82) [place] 41, CABG 53, carotid endarterectomy, RENAL CA, neuropathy Maternal Grandfather (Age 88) CH F Maternal Grandmother (Age 91) CH F Mother Alive Thyroid cancer; back prob; dementia Paternal Grandfather (Age 68) [place] Paternal Grandmother (Age 91) FT T; neuropathy Uncle alzheimers at a ge 60 - mother brother Social History Tobacco Use Types Packs/Day Years [...] Orientation Straight 02/27/2024 11 :57 AM EST Obstetrics History Last Filed Vital Signs Vital Sign Reading Time Taken Comments Blood Pressure 130/80 08/07/2023 10:11 AM EDT Sitting L Arm Pulse 59 08/07/2023 10:11 AM EDT Temperature - - Respiratory Rate - - Oxygen Saturation - - Inhaled Oxygen Concentration - - Weight 123 kg (271 lb 6.4 oz) 10:11 AM EDT Height 190.5 cm (6' 3 ) 08/07/2023 10:1 1 AM EDT Body Mass Index 33.92 08/07/2023 10:11 AM EDT Plan of Treatment Upcoming Encounters Date Type Department Care Team (Late st Contact Info) Description 05/29/2024 9:40 AM EDT Office Visit [facility] - [address] [place] [address] Celestina Kohli PA [address] [place] [address] Health Maintenance Due Date Last Done Comments RSV Immunization Patients 60+ Years Old (1 - Risk 60-74 years 1-dose series) 2017 Diabetes: Annual Foot Exam 02/22/2020 02/21/2019 Diabetes: Annual Retina Eye Exam 12/05/2020 12/06/2019 Depression Screening 02/11/2022 Diabetes: Annual Urine Albumin-Creatinine Ratio (uACR) 02/11/2022 10/09/2018 Diabetes: Blood Sugar Control Test (HGBA1C) 02/11/2022 11/15/2019 Social Influencers of Health Screening 02/11/2022 Falls Risk Assessment 2022 Diabetes: Annual GFR (Glomerular Filtration Rate) 09/06/2023 09/05/2022 Hypertension/CHF/CAD Annual BMP Blood Test 09/06/2023 09/05/2022 COVID-19 Vaccine ( season) 2023 01/25/2021, 06/05/2020, 05/08/2020 Influenza Vaccine (#1) 2023 , 01/04/2022, 12/10/2020, Additional history exists Cholesterol Screening (Lipid Panel) 02/16/2024 02/15/2019 Colorectal Cancer Screening: Colonoscopy 04/23/2028 04/23/2018 DTaP,Tdap,and Td Vaccines (4 - Td or Tdap) 09/28/2032 09/28/2022, 02/16/2011, 09/15/2005, Additional history exists Hepatitis C Screening Completed 09/23/2019 Zoster Vaccines Completed 2020, 01/05/2020 Pneumococcal Vaccine: 50+ Years Completed 04/03/2023, 12/25/2014, 12/17/2012, Additional history exists HIB Vaccines Aged Out No longer eligi ble based on patient's age to complete this topic HPV Vaccines Aged Out No longer eligi ble based on patient's age to complete this topic Hepatitis A Vaccines Aged Out No long er eligible based on patient's age to complete this topic Hepatitis B Vaccines Aged Out No long er eligible based on patient's age to complete this topic IPV Vaccines Aged Out No longer eligi ble based on patient's age to complete this topic MMR Vaccines Aged Out No longer eligi ble based on patient's age to complete this topic Meningococcal ACWY Vaccine Aged Out N o longer eligible based on patient's age to complete this topic Meningococcal B Vacine Aged Out No lo nger eligible based on patient's age to complete this topic RSV Immunization Patients Under 20 months Aged Out No longer eligible based on patient's age to complete this topic Varicella Vaccines Aged Out No longer eligible based on patient's age to complete this topic Medical Devices Implanted Type Area Reinforcing Steel Machine Operator Device Identifier Shelf Expiration Date Model / Serial / Lot Bsci-Crm [id number] Implanted:03/2020 (Quantity not on file) Cardiac Loop Recorder [employer]HY[employer] MGMT [id number] / [id number] / Procedures Procedure Name Priority Date/Time Associated Diagnosis Comments CARDIAC DEVICE CHECK- REMOTE- MURJ Routine 04/17/2024 11:44 AM EST CARDIAC DEVICE CHECK- REMOTE- MURJ Routine 03/12/2024 11:56 AM EST CARDIAC DEVICE CHECK- REMOTE- MURJ Routine 02/23/2024 4:14 PM EST CARDIAC DEVICE CHECK- REMOTE- MURJ Routine 02/06/2024 8:23 PM EST ANNUAL BMP BLOOD TEST Routine 09/05/2022 DIABETES EYE EXAM Routine 12/06/2019 HEMOGLOBIN A1C Routine 11/15/2019 HEPATITIS C SCREENING Routine 09/23/2019 DIABETES FOOT EXAM Routine 02/21/2019 LIPID PANEL Routine 02/15/2019 URINE ALBUMIN CREATININE RATIO Routine 10/09/2018 COLONOSCOPY Routine 04/23/2018 from Last 3 Months or Most Recently Relevant to Health Maintenance Results * Cardiac device check - Remote- MURJ (04/17/2024 11:44 AM EST) Only the most recent of4 resultswithin the time period is included. Date Time Interrogation Session [id number] CV DEVICE CHECK Type Interrogation Session Remote Device Initiated CV DEVICE CHECK Implantable Pulse Generator Reinforcing Steel Machine Operator BSX CV DEVICE CHECK Implantable Pulse Generator Type ILR CV DEVICE CHECK Implantable Pulse Generator Model M301 CV DEVICE CHECK Implantable Pulse Generator Serial Number [id number] CV DEVICE CHECK Implantable Pulse Generator Implant [...] for ILR battery at end of life. Result [facility] Leyda Mosley MD CV IMPLANTABLE CARDIAC DEV ICE PROCEDURES Final Result * Annual BMP Blood Test (09/05/2022) [facility] Annual BMP Blood Test Abstracted Result [facility] Provider HEALTH MAINTENANCE Final Result * Diabetes Eye Exam (12/06/2019) [facility] Diabetes: Annual Retina Eye Exam Abstracted Result [facility] HEALTH MAINTENANCE Final Result * Hemoglobin A1c (11/15/2019) [facility] Hemoglobin A1C 6.3 <=6.5 % Blood Venous blood specimen / Unknown Result [facility] Provider LAB BLOOD ORDERABLES Akanksha l Result * Hepatitis C Screening (09/23/2019) [facility] Hepatitis C Screening Abstracted Result [facility] HEALTH MAINTENANCE Final Result * Diabetes Foot Exam (02/21/2019) [facility] Diabetes: Annual Foot Exam Abstracted Result [facility] HEALTH MAINTENANCE Final Result * Lipid panel (02/15/2019) [facility] LDL/HDL Ratio 4 0 - 4 Triglycerides 142 0 - 150 mg/dL Cholesterol 163 0 - 200 mg/dL HDL 45 >=40 mg/dL LDL Cholesterol 90 0 - 100 mg/dL Blood Venous blood specimen / Unknown Result [facility] Provider LAB BLOOD ORDERABLES Akanksha l Result * Urine Albumin Creatinine Ratio (10/09/2018) Urine Albumin Creatinine Ratio Abstracted us Historical Provider HEALTH MAINTENANCE Final Result * Colonoscopy (04/23/2018) Pathologist [facility] Colonoscopy No Interpretation , Abstracted Anatomical Region Laterality Modality Other us Historical Provider HEALTH MAINTENANCE Final Result from Last 3 Months or Most Recently Relevant to Health Maintenance Insurance [employer] Care Teams Sorting Livestock Worker Relationship Specialty Start Date End Date Negra Dodd MD PCP - General Internal Medicine 01/08/21
--- OUTSIDE RECORDS SUMMARY | 2024-04-30 07:56 | XMS_ITS | Clinical Summary ---
Author Organization [facility] Address [address] [place] [address] Care Team Providers Care Director Talent Name Role Phone Unknown, Primary Care Provider Unavailabl e Social History Tobacco Use Types Packs/Day Years Used Date Smoking Tobacco: Never Assessed Sex and Gender Information Value Date Recorded Sex Assigned at Not on file Gender Identity Not on file Sexual Orientation Not on file Job Start Date Occupation Industry Not on file Not on file Not on file Plan of Treatment Health Maintenance Due Date Last Done Comments Hepatitis C Screening 1957 Depression Screening 1969 Preventative Health Evaluation 1975 Colon Cancer Screening (Colonoscopy) 2002 DTap / Tdap / Td (2 - Td or Tdap) 02/16/2021 02/16/2011, 09/15/2005 Fall Risk Assessment 2022 Pneumococcal Vaccine (3 of 3 - PPSV23 or PCV20) 2022 12/25/2014, 12/17/2012, 10/16/2007 COVID-19 Vaccine (3 - season) 2023 06/05/2020, 05/08/2020 Influenza Vaccine (#1) 2023 2, 12/10/2020, 11/15/2019, Additional history exists RSV Adult > 60+ Yrs or (1 - 1-dose 75+ series) 2032 Shingrix-Zoster Vaccine Completed 2020, 01/04 Hepatitis B Vaccines Aged Out No long er eligible based on patient's age to complete this topic RSV Ped < 20 months Aged Out No longe r eligible based on patient's age to complete this topic Care Teams Director Talent Relationship Specialty Start Date End Date Unknown, PCP - General 11/09/22
[2024-04-30 11:30] LABS: MANUAL DIFF FLAG NO
[2024-04-30 11:35] LABS: Basophils Absolute Auto 0.1 X10*3/uL (0.0-0.2); Basophils Percent Auto 1.2 % (0-2); Eosinophils Absolute Auto 0.4 X10*3/uL (0.0-0.4); Eosinophils Percent Auto 5.8 % (0-4); Hematocrit 46.7 % (42.0-52.0); Hemoglobin 15.2 g/dl (14.0-18.0); Imm Gran Abs Auto 0.02 X10*3/uL (0.00-0.03); Imm Gran Pct Auto 0.3 % (0.0-0.4); Lymphocytes Absolute Auto 1.7 X10*3/uL (1.2-4.9); Lymphocytes Percent Auto 26.4 % (20-40); Mean Corpuscular HGB Conc 32.5 g/dl (31.0-36.0); Mean Corpuscular Hemoglobin 29.9 pg (27.0-33.0); Mean Corpuscular Volume 91.9 fL (80.0-98.0); Mean Platelet Volume 9.7 fL (9.4-12.4); Monocytes Absolute Auto 0.7 X10*3/uL (0.1-1.2); Monocytes Percent Auto 10.1 % (2-11); Neutrophils Absolute Auto 3.6 x10*3/uL (2.0-8.3); Neutrophils Percent Auto 56.2 % (45-73); Platelet Count 279 X10*3/uL (160-400); Red Blood Count 5.08 X10*6/uL (4.60-5.80); White Blood Count 6.4 X10*3/uL (4.8-10.8)
[2024-04-30 12:06] LABS: Estimated Average Glucose 120 mg/dL; Hemoglobin A1c % 5.8 % (<6.0); Total Hemoglobin (HGBA1C) 4015.1538 umol/L
[2024-04-30 12:26] LABS: Prostate Specific Antigen 1.01 ng/mL (<0.05-4.0)
[2024-04-30 12:30] LABS: Alanine Aminotransferase 65 U/L (0-40); Albumin Level 4.2 g/dL (3.5-5.0); Alkaline Phosphatase 65 U/L (39-117); Anion Gap 12 (12-20); Aspartate Amino Transferase 45 U/L (5-37); Bilirubin Total 0.5 mg/dL (0.0-1.0); Blood Urea Nitrogen 16 mg/dL (9-16); Calcium 9.7 mg/dL (8.4-10.2); Carbon Dioxide 30 mmol/L (22-29); Chloride 102 mmol/L (96-108); Cholesterol 164 mg/dL (<200); Estimated Glomerular Filt Rate > 60; Glucose Random 114 mg/dL (60-115); HDL Cholesterol 51 mg/dL (>40); LDL Cholesterol Calculated 90 mg/dL (<100); Potassium 3.9 mmol/L (3.3-5.1); Sodium 140 mmol/L (135-145); Triglycerides 116 mg/dL (<150)
== END 2024-04-30 07:54 | disposition home or self-care (01) ==
LOC: HO.WFDLDS 07:53
PROVIDERS: Visit Provider Internal Medicine
DX: E11.51 Type 2 diabetes mellitus with diabetic peripheral angiopathy without gangrene (principal); E11.69 Type 2 diabetes mellitus with other specified complication; Z12.5 Encounter for screening for malignant neoplasm of prostate; Z13.0 Encounter for screening for diseases of the blood and blood-forming organs and certain disorders involving the immune mechanism; I10 Essential (primary) hypertension; E78.5 Hyperlipidemia, unspecified
CPT/HCPCS: 36415; 80053; 80061; 83036; 84153; 85025

== ENCOUNTER 2024-05-07 08:49 | Outpatient (AMB) | payer OTHER, SELFPAY ==
--- NOTE | 2024-05-07 08:55 | A.OFFPC_ITS ---
Vital Signs 05/07/24 09:02 Height 6 ft 3 in Weight 263 lb 8 oz BMI 32.9 BP 128/74 Blood Pressure Location Rt brachial Position Sitting Respiration 16 Pulse 63 Pulse Source Pulse Oximeter Pulse Oximetry (%) 96 Oxygen Delivery Method Room Air Intake Visit Reasons: Diabetes Follow up Intake Note: Follow up diabetes Allergies No Known Allergies Allergy (Verified 05/09/24 08:40) Tobacco use date assessed: 11/14/23 Fall risk assessment: No Falls in past year Last assessed Fall Risk: 05/07/24 Dental Screening Dental Screen Date: 08/22/23 HPI HPI Comments History of Present Illness Details The patient is a 68 year old male with a past medical history of diet controlled type 2 DM, history of ?TIA, htn, hld, BPH, DEVIN, DDD LS spine, neck, presenting for follow up Diabetes: controlled on recent labs. Chronic neuropathy. Eye exam up to date Chronic pain -DDD lumbar spine. Issues with low back pain, sciatica. Has seen NS, PM&R. He responds well to short steroid course when symptoms flare. -Cervical DD-h/o MRI 2018 with severe bi lateral foraminal stenosis C6-C7. -Shoulder pain: MRI with partial rotator cuff tears, AC joint widening. Undwent shoulder repair. A few months later felt like he moved it out of place. Pain levels have decreased over the past few months CV: Found Afib on ILR. Follows with cardiology. On AC Placed on AC. BP soft. Reports sometimes lightheaded upon standing. No recent leg or ankle swelling Neuro: Previous worry and worsening memory, dysarthria. In 2019 had what was later thought to be a TIA. When he was walking he saw flashes of light. He had suddenly developed weakness in the right leg. This persisted for 8 months before resolving. Saw 2 neurologist-MRI reviewed and a few small vessel T2 lesions, 1 in basal ganglia, cervical MRI, chem, CBC lyme, ESR, MARIA ISABEL. LS MRI with DJD. 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 In absence of motor weakness and with continue dysarthria and fatigue presumed TIA Some bilateral foot pain. upcoming appt with [facility] Abdominal pain and bloating. Increased with coughing, no constipation BPH on tamsulosin, ED on viagra. Requests urology referral Colon cancer screening utd ROS see HPI PHYSICAL EXAM: GENERAL: Alert and oriented x 3. NAD EYES: EOMI. Anicteric. HENT: Moist mucous membranes. No scleral icterus. No cervical lymphadenopathy. LUNGS: Clear to auscultation bilaterally. CARDIOVASCULAR: Regular rate and rhythm. No murmur. No JVD. ABDOMEN: Soft, mild tender to palpation +bs EXTREMITIES: No edema. Non-tender. SKIN: No rashes or lesions. Warm. NEUROLOGIC: No focal neurological deficits. CN II-XII grossly intact PSYCHIATRIC: Cooperative. Appropriate mood and affect [facility] Medical History Type 2 diabetes mellitus Sternoclavicular sprain Polyneuropathy Persistent cough DEVIN (obstructive sleep apnea) Obesity, Class I, BMI 30-34.9 HTN (hypertension) Hyperlipemia Erectile dysfunction DDD (degenerative disc disease), cervical Cervical radiculitis BPH (benign prostatic hyperplasia) Afib Arthritis Surgical History History of total right knee replacement Status post left knee replacement Hx of colonoscopy Social History Housing: House Alcohol intake: former Patient Tobacco Use Status: Never used Tobacco e-Cigarette/Vaping Use: Never Used Second Hand Smoke Exposure: Yes service: Yes Current occupational status: employed 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 Current occupational exposures/hazards: No Cognitive needs: No Hearing needs: No Vision needs: No Questionnaire PHQ-9 Over the last 2 weeks, how often have you been bothered by any of the following problems? 1. Little interest or pleasure in doing things: not at all 2. Feeling down, depressed, or hopeless: not at all 3. Trouble falling or staying asleep, or sleeping too much: not at all 4. Feeling tired or having little energy: not at all 5. Poor appetite or overeating: not at all 6. Feeling bad about yourself - or that you are a failure or have let yourself or your family down: not at all 7. Trouble concentrating on things, such as reading the newspaper or watching television: not at all 8. Moving or speaking so slowly that other people could have noticed. Or the opposite - being so fidgety or restless that you have been moving around a lot more than usual: not at all 9. Thoughts that you would be better off or of hurting yourself in some way: not at all Total score: 0 Depression Screening Interpretation: Negative Depression Screening Done: Yes [id number] - PHQ-9 Billing: Yes Source: Developed by Drs. Lopez Maxwell, Yung Swanson and colleagues, with an educational heydi from [employer]. Thrive Questionnaire Date Thrive assessed: 05/07/24 I am a: Patient What is your living situation today?: I have a steady place to live Within the past 12 months, did the food you bought not last and you didn't have the money to get more?: Never true Within the past 12 months, did you worry whether your food would run out before you got money to buy more?: Never true Do you have trouble paying for medicines?: No Do you have trouble getting transportation to medical appointments?: No Do you have trouble paying your heating and electricity bill?: No Do you have trouble taking care of your child, family member or friend?: No Do you have trouble with day-to-day activities such as bathing, preparing meals, shopping, managing finances, etc.?: No Are you currently unemployed and looking for a job?: No Are you interested in more education?: No Please select the resources that you would like help with: None Currently or been in a relationship where the following occur: I choose not to answer THRIVE Score: 0 VERENICE-7 AMB Questionnaire VERENICE-7 Date VERENICE - 7 assessed: 08/22/23 Source: Developed by Drs. Lopez Maxwell, Cristela Gunderson, Yung Arreola and colleagues, with an educational heydi from [employer]. Physical exam (Primary Care) Vital Signs: Last Vital Signs Pulse 63 05/07/24 09:02 Resp 16 05/07/24 09:02 BP 128/74 05/07/24 09:02 Pulse Ox 96 05/07/24 09:02 Oxygen Delivery Method Room Air 05/07/24 09:02 BMI result Body Mass Index 32.9 Tobacco/Smoking Status: Tobacco use Status Tobacco use date assessed 11/14/23 05/07/24 09:00 Patient Tobacco Use Status Never used Tobacco 05/07/24 09:00 e-Cigarette/Vaping Use Never Used 05/07/24 09:00 PHQ-9: PHQ-9 Score PHQ-9: Total score 0 05/12/24 20:52 Depression Screening Interpretation: Negative Thrive Assessment: Date of Thrive Assessment Date Thrive assessed 05/07/24 05/07/24 09:03 Currently or been in a relationship where the following occur: I choose not to answer Coding Level of Care Code Est Pt Level 4 (69736) Diagnoses No history of major surgery within 1 month Z78.9 Benign prostatic hyperplasia with lower urinary tract symptoms, symptom details unspecified N40.1 Lower urinary tract symptom presence: symptoms present Lower urinary tract symptom detail: unspecified Type 2 diabetes, controlled, with peripheral circulatory disorder E11.51 Additional Codes PHQ-9 - 06962 - PHQ-9 Billing: Yes ([id number]) Assessment & Plan Assessment & Plan (1) No history of major surgery within 1 month: Code(s): Z78.9 - Other specified health status (2) BPH (benign prostatic hyperplasia): Code(s): N40.0 - Benign prostatic hyperplasia without lower urinary tract symptoms Category: Medical Qualifiers: Lower urinary tract symptom presence: symptoms present Lower urinary tract symptom detail: unspecified Qualified Code(s): N40.1 - Benign prostatic hyperplasia with lower urinary tract symptoms (3) Type 2 diabetes, controlled, with peripheral circulatory disorder: Code(s): E11.51 - Type 2 diabetes mellitus with diabetic peripheral angiopathy without gangrene Category: Medical Plan controlled. Neuropathy despite good glcyemic control. Recommend NEC program Orders: Referrals Urology Referral N40.0 - Benign prostatic hyperplasia without lower urinary tract symptoms
[2024-05-07 09:02] VITALS: BP 128/74; PULSE 63; RESP 16; O2SAT 96; BMI 32.9
--- OUTSIDE RECORDS SUMMARY | 2024-05-07 09:30 | XMS_ITS | Encounter Summary ---
Author Organization [facility] [place] [address] Care Team Providers Care Chief Inspector Name Role Phone Negra Dodd MD Primary Care Provider [phone] Encounter Details Date Type Department Care Team (Late st Contact Info) Description 04/17/2024 11:45 AM EST Ancillary Procedure [facility] - [address] [facility] [address] [place] [id number] Social History Tobacco Use Types Packs/Day Years [...] Description 05/29/2024 9:40 AM EDT Office Visit [facility] Cardiology [facility] - [address] [place] [phone] Celestina Kohli PA [address] [place] [address] documented as of this encounter Procedures Procedure Name Priority Date/Time Associated Diagnosis Comments CARDIAC DEVICE CHECK- REMOTE- MURJ Routine 04/17/2024 11:44 AM EST documented in this encounter Results * Cardiac device check - Remote- MURJ (04/17/2024 11:44 AM EST) Date Time Interrogation Session [id number] CV DEVICE CHECK Type Interrogation Session Remote Device Initiated CV DEVICE CHECK Implantable Pulse Generator Radiology Tech BSX CV DEVICE CHECK Implantable Pulse Generator Type ILR CV DEVICE CHECK Implantable Pulse Generator Model M301 CV DEVICE CHECK Implantable Pulse Generator Serial Number [id number] CV DEVICE CHECK Implantable Pulse Generator Implant [...] on filedocumented in this encounter Care Teams Chief Inspector Relationship Specialty Start Date End Date Negra Dodd MD PCP - General Internal Medicine 01/08/21 documented as of this encounter
--- OUTSIDE RECORDS SUMMARY | 2024-05-07 09:30 | XMS_ITS | Clinical Summary ---
Author Organization [address] [facility] Address [address] [place] [address] Phone Care Team Providers Care Alum Operator Name Role Phone Negra Dodd MD Primary Care Provider [phone] Allergies No known active allergies Medications aspirin [...] Diagnosed Date Coronary artery disease invo lving [place] coronary artery of [place] heart without angina pectoris 08/07/2023 Hyperlipidemia 08/07/2023 Paroxysmal atrial fibrillation 09/01/2022 Syncope and collapse 11/04/2020 Obstructive sleep apnea 02/26/2020 Overview (01/19/2024): [facility] Home Sleep Apnea Test: Date 02/18/2020; Wt [...] Description 04/17/2024 11:45 AM EST Ancillary Procedure [facility] - [address] [place] [address] 03/12/2024 12:00 PM EST Ancillary Procedure [facility] - [address] [place] [address] 02/23/2024 4:15 PM EST Ancillary Procedure [facility] - [facility] [address] [place] [address] 02/19/2024 Telephone [facility] - [facility] [address] [place] [address] He Butt, RN appointment with EP DAHIANA from Last 3 Months Immunizations Name Administration [...] History Surgery Date Site/Laterality Comments LUMBAR LAMINECTOMY 2005 PROCEDURE: HISTORICAL LUMB LAMINECTOMY; COMMENT: COLONOSCOPY 11/23/2007 [...] years. Type 2 diabetes mellitus, co ntrolled ([facility]/HCC) 03/30/2015 DX:Type 2 diabetes mellitus, controlled ([facility]) Flexor tenosynovitis of finger 07/28/2016 [...] Comments Father (Age 82) Kidney [place]orge [place], [place] at 41, CABG 53, carotid endarterectomy, RENAL CA, neuropathy Maternal Grandfather (Age 88) CH F Maternal Grandmother (Age 91) CH F Mother Alive Thyroid cancer; back prob; dementia Paternal Grandfather (Age 68) [place] Paternal Grandmother (Age 91) FT T; neuropathy [...] Description 05/29/2024 9:40 AM EDT Office Visit [facility] - [facility] [address] [facility] [address] [place] [address] Celestina Kohli PA [address] [place] [address] Health Maintenance Due Date Last Done Comments [...] 01/25/2021, 06/05/2020, 05/08/2020 Influenza Vaccine (#1) 2023 4, 01/04/2022, 12/10/2020, Additional history exists Cholesterol Screening [...] this topic Medical Devices Implanted Type Area Die Cast Engineer Device Identifier Shelf Expiration Date Model / Serial / Lot Bsci-Crm [id number] Implanted:03/2020 (Quantity not on file) Cardiac Loop Recorder [employer] MGMT [id number] / [id number] / Procedures Procedure Name Priority Date/Time Associated Diagnosis Comments CARDIAC DEVICE CHECK- REMOTE- MURJ Routine 04/17/2024 11:44 AM EST CARDIAC DEVICE CHECK- REMOTE- MURJ Routine 03/12/2024 11:56 AM EST CARDIAC DEVICE CHECK- REMOTE- MURJ Routine 02/23/2024 4:14 PM EST ANNUAL BMP BLOOD TEST Routine [...] 11:44 AM EST) Only the most recent of3 resultswithin the time period is included. Date Time Interrogation Session [id number] CV DEVICE CHECK Type Interrogation Session Remote Device Initiated CV DEVICE CHECK Implantable Pulse Generator Die Cast Engineer BSX CV DEVICE CHECK Implantable Pulse Generator Type ILR CV DEVICE CHECK Implantable Pulse Generator Model M301 CV DEVICE CHECK Implantable Pulse Generator Serial Number [id number] CV DEVICE CHECK Implantable Pulse Generator Implant [...] ILR battery at end of life. Result [facility] Leyda Mosley MD CV IMPLANTABLE CARDIAC DEV ICE PROCEDURES Final Result * Annual BMP Blood Test (09/05/2022) Pathologist [facility] Annual BMP Blood Test Abstracted Result [facility] Provider HEALTH MAINTENANCE Final Result * Diabetes Eye Exam (12/06/2019) [facility] Diabetes: Annual Retina Eye Exam Abstracted Result [facility] Provider HEALTH MAINTENANCE Final Result * Hemoglobin A1c (11/15/2019) [facility] Hemoglobin A1C 6.3 <=6.5 % Blood Venous blood specimen / Unknown Result [facility] Provider LAB BLOOD ORDERABLES Akanksha l Result * Hepatitis C Screening (09/23/2019) [facility] Hepatitis C Screening Abstracted Result [facility] Provider HEALTH MAINTENANCE Final Result * Diabetes Foot Exam (02/21/2019) [facility] Diabetes: Annual Foot Exam Abstracted Result [facility] Provider HEALTH MAINTENANCE Final Result * Lipid panel (02/15/2019) [facility] LDL/HDL Ratio 4 0 - 4 Triglycerides 142 0 - 150 mg/dL Cholesterol 163 0 - 200 mg/dL HDL 45 >=40 mg/dL LDL Cholesterol 90 0 - 100 mg/dL Blood Venous blood specimen / Unknown Result [facility] Provider LAB BLOOD ORDERABLES Akanksha l Result * Urine Albumin Creatinine Ratio (10/09/2018) [facility] Urine Albumin Creatinine Ratio Abstracted Result [facility] Provider HEALTH MAINTENANCE Final Result * Colonoscopy (04/23/2018) [facility] Colonoscopy No Interpretation , Abstracted Anatomical Region Laterality Modality Other Result [facility] Provider HEALTH MAINTENANCE Final Result from Last 3 Months or Most Recently Relevant to Health Maintenance Insurance [employer] Care Teams Alum Operator Relationship Specialty Start Date End Date Negra Dodd MD PCP - General Internal Medicine 01/08/21
--- OUTSIDE RECORDS SUMMARY | 2024-05-07 09:30 | XMS_ITS | Clinical Summary ---
Author Organization [facility] Address [address] [place] [address] Care Team Providers Care Rework Machine Operator Name Role Phone Unknown, Primary Care Provider [...] age to complete this topic Care Teams Rework Machine Operator Relationship Specialty Start Date End Date Unknown, PCP - General 11/09/22
== END 2024-05-07 11:23 | disposition home or self-care (01) ==
PROVIDERS: PCP Internal Medicine; Visit Provider Internal Medicine
DX: Z78.9 Other specified health status (principal); N40.1 Benign prostatic hyperplasia with lower urinary tract symptoms; E11.51 Type 2 diabetes mellitus with diabetic peripheral angiopathy without gangrene

== ENCOUNTER → 2024-05-07 08:49 | Outpatient (BNVA) | payer OTHER, SELFPAY | PROVIDERS: PCP Internal Medicine; Visit Provider Internal Medicine | DX: E11.51 Type 2 diabetes mellitus with diabetic peripheral angiopathy without gangrene (principal); N40.0 Benign prostatic hyperplasia without lower urinary tract symptoms; Z78.9 Other specified health status | CPT/HCPCS: 96127 ==

== ENCOUNTER 2024-05-09 08:21 | Outpatient (AMB) | payer OTHER, SELFPAY ==
[2024-05-09 08:40] VITALS: BP 120/76; PULSE 62; RESP 16; O2SAT 97; BMI 33.1
--- NOTE | 2024-05-09 08:40 | A.OFFPC_ITS ---
Vital Signs 05/09/24 08:40 Height 6 ft 3 in Weight 265 lb BMI 33.1 BP 120/76 Blood Pressure Location Rt brachial Position Sitting Respiration 16 Pulse 62 Pulse Source Pulse Oximeter Pulse Oximetry (%) 97 Oxygen Delivery Method Room Air Intake Visit Reasons: cpe Intake Note: Physical Communications And Signals Supervisor Required: No Allergies No Known Allergies Allergy (Verified 05/09/24 08:40) Tobacco use date assessed: 05/09/24 Fall risk assessment: No Falls in past year Last assessed Fall Risk: 05/09/24 Dental Screening Dental Screen Date: 08/22/23 HPI HPI Comments History of Present Illness Details The patient is a 69 year old male with a past medical history of diet controlled type 2 DM, history of ?TIA, htn, hld, BPH, DEVIN, DDD LS spine, neck, presenting for follow up. Diabetes: controlled on recent labs. Chronic neuropathy. Eye exam up to date Chronic pain -DDD lumbar spine. Issues with low back pain, sciatica. Has seen NS, PM&R. He responds well to short steroid course when symptoms flare. -Cervical DD-h/o MRI 2018 with severe bi lateral foraminal stenosis C6-C7. -Shoulder pain: MRI with partial rotator cuff tears, AC joint widening. Undwent shoulder repair. A few months later felt like he moved it out of place. Pain l evels have decreased over the past few months CV: Found Afib on ILR. Follows with cardiology. On AC Placed on AC. BP soft. Reports sometimes lightheaded upon standing. No recent leg or ankle swelling Neuro: Previous worry and worsening memory, dysarthria. In 2019 had what was later thought to be a TIA. When he was walking he saw flashes of light. He had suddenly developed weakness in the right leg. This persisted for 8 months before resolving. Saw 2 neurologist-MRI reviewed and a few small vessel T2 lesions, 1 in basal ganglia, cervical MRI, chem, CBC lyme, ESR, MARIA ISABEL. LS MRI with DJD. 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 In absence of motor weakness and with continue dysarthria and fatigue presumed TIA Some bilateral foot pain. continues to follow up with [facility] Abdominal pain and bloating. Increased with coughing, no cons On tamsulosin for BPH, viagra for ED. Would like to see urology Tdap up to date ROS see HPI PHYSICAL EXAM: GENERAL: Alert and oriented x 3. NAD EYES: EOMI. Anicteric. HENT: Moist mucous membranes. No scleral icterus. No cervical lymphadenopathy. LUNGS: Clear to auscultation bilaterally. CARDIOVASCULAR: Regular rate and rhythm. No murmur. No JVD. ABDOMEN: Soft, mild tender to palpation +bs EXTREMITIES: No edema. Non-tender. SKIN: No rashes or lesions. Warm. NEUROLOGIC: No focal neurological deficits. CN II-XII grossly intact PSYCHIATRIC: Cooperative. Appropriate mood and affect [facility] Medical History Type 2 diabetes mellitus Sternoclavicular sprain Polyneuropathy Persistent cough DEVIN (obstructive sleep apnea) Obesity, Class I, BMI 30-34.9 HTN (hypertension) Hyperlipemia Erectile dysfunction DDD (degenerative disc disease), cervical Cervical radiculitis BPH (benign prostatic hyperplasia) Afib Arthritis Surgical History History of total right knee replacement Status post left knee replacement Hx of colonoscopy Social History Housing: House Alcohol intake: former Patient Tobacco Use Status: Never used Tobacco e-Cigarette/Vaping Use: Never Used Second Hand Smoke Exposure: Yes service: Yes Current occupational status: employed 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 [employer] Current occupational exposures/hazards: No Cognitive needs: No Hearing needs: No Vision needs: No Questionnaire Thrive Questionnaire Date Thrive assessed: 05/07/24 I am a: Patient What is your living situation today?: I have a steady place to live Within the past 12 months, did the food you bought not last and you didn't have the money to get more?: Never true Within the past 12 months, did you worry whether your food would run out before you got money to buy more?: Never true Do you have trouble paying for medicines?: No Do you have trouble getting transportation to medical appointments?: No Do you have trouble paying your heating and electricity bill?: No Do you have trouble taking care of your child, family member or friend?: No Do you have trouble with day-to-day activities such as bathing, preparing meals, shopping, managing finances, etc.?: No Are you currently unemployed and looking for a job?: No Are you interested in more education?: No Please select the resources that you would like help with: None Currently or been in a relationship where the following occur: I choose not to answer THRIVE Score: 0 VERENICE-7 AMB Questionnaire VERENICE-7 Date VERENICE - 7 assessed: 08/22/23 Source: Developed by Drs. Lopez Maxwell, Cristela Gunderson, Yung Arreola and colleagues, with an educational heydi from [employer]. Physical exam (Primary Care) Vital Signs: Last Vital Signs Pulse 62 05/09/24 08:40 Resp 16 05/09/24 08:40 BP 120/76 05/09/24 08:40 Pulse Ox 97 05/09/24 08:40 Oxygen Delivery Method Room Air 05/09/24 08:40 BMI result Body Mass Index 33.1 Tobacco/Smoking Status: Tobacco use Status Tobacco use date assessed 05/09/24 05/09/24 08:43 Patient Tobacco Use Status Never used Tobacco 05/09/24 08:43 e-Cigarette/Vaping Use Never Used 05/09/24 08:43 Thrive Assessment: Date of Thrive Assessment Date Thrive assessed 05/07/24 05/09/24 08:43 Currently or been in a relationship where the following occur: I choose not to answer Coding Level of Care Code Est Pt Level 4 (22771) Diagnoses Primary hypertension I10 Hypertension type: primary hypertension Mixed hyperlipidemia E78.2 Hyperlipidemia type: mixed hyperlipidemia Type 2 diabetes, controlled, with peripheral neuropathy E11.42 Assessment & Plan Assessment & Plan (1) HTN (hypertension): Code(s): I10 - Essential (primary) hypertension Category: Medical Qualifiers: Hypertension type: primary hypertension Qualified Code(s): I10 - Essential (primary) hypertension Plan: well controlled Continue dietary lifestyle efforts (2) Hyperlipemia: Code(s): E78.5 - Hyperlipidemia, unspecified Category: Medical Qualifiers: Hyperlipidemia type: mixed hyperlipidemia Qualified Code(s): E78.2 - Mixed hyperlipidemia Plan: stable on current medications (3) Type 2 diabetes, controlled, with peripheral neuropathy: Code(s): E11.42 - Type 2 diabetes mellitus with diabetic polyneuropathy Category: Medical Plan: controlled. Orders: Orders Hemoglobin A1c 05/09/24 E11.51 - Type 2 diabetes mellitus with diabetic peripheral angiopathy without gangrene, I10 - Essential (primary) hypertension, M54.16 - Radiculopathy, lumbar region Comprehensive Met. Panel 05/09/24 E11.51 - Type 2 diabetes mellitus with diabetic peripheral angiopathy without gangrene, I10 - Essential (primary) hypertension, M54.16 - Radiculopathy, lumbar region Liver Panel 05/09/24 E11.51 - Type 2 diabetes mellitus with diabetic peripheral angiopathy without gangrene, I10 - Essential (primary) hypertension, M54.16 - Radiculopathy, lumbar region
--- OUTSIDE RECORDS SUMMARY | 2024-05-09 08:45 | XMS_ITS | Clinical Summary ---
Author Organization [facility] Address [address] [place] [address] Care Team Providers Care Sweatband Perforator Name Role Phone Unknown, Primary Care Provider [...] age to complete this topic Care Teams Sweatband Perforator Relationship Specialty Start Date End Date Unknown, PCP - General 11/09/22
--- OUTSIDE RECORDS SUMMARY | 2024-05-09 08:45 | XMS_ITS | Encounter Summary ---
Author Organization [facility] [place] [address] Care Team Providers Care Flexographic Press Plate Setter Name Role Phone Negra Dodd MD Primary Care Provider [phone] Encounter Details Date Type Department Care Team (Late st Contact Info) Description 04/17/2024 11:45 AM EST Ancillary Procedure [facility] - [address] [facility] [address] [place] [phone] Social History Tobacco Use Types Packs/Day Years [...] Description 05/29/2024 9:40 AM EDT Office Visit [facility] Cardiology [facility] - [address] [place] [phone] Celestina Kohli PA [address] [place] [address] documented as of this encounter Procedures Procedure Name Priority Date/Time Associated Diagnosis Comments CARDIAC DEVICE CHECK- REMOTE- MURJ Routine 04/17/2024 11:44 AM EST documented in this encounter Results * Cardiac device check - Remote- MURJ (04/17/2024 11:44 AM EST) Date Time Interrogation Session [id number] CV DEVICE CHECK Type Interrogation Session Remote Device Initiated CV DEVICE CHECK Implantable Pulse Generator Spray Crew BSX CV DEVICE CHECK Implantable Pulse Generator Type ILR CV DEVICE CHECK Implantable Pulse Generator Model M301 CV DEVICE CHECK Implantable Pulse Generator Serial Number [id number] CV DEVICE CHECK Implantable Pulse Generator Implant [...] on filedocumented in this encounter Care Teams Flexographic Press Plate Setter Relationship Specialty Start Date End Date Negra Dodd MD PCP - General Internal Medicine 01/08/21 documented as of this encounter
--- OUTSIDE RECORDS SUMMARY | 2024-05-09 08:45 | XMS_ITS | Clinical Summary ---
Author Organization [address] [facility] Address [address] [place] [address] Phone Care Team Providers Care Motor Inspection Mechanic Name Role Phone Negra Dodd MD Primary Care Provider [phone] Allergies No known active allergies Medications aspirin [...] Diagnosed Date Coronary artery disease invo lving [place] coronary artery of [place] heart without angina pectoris 08/07/2023 Hyperlipidemia 08/07/2023 Paroxysmal atrial fibrillation 09/01/2022 Syncope and collapse 11/04/2020 Obstructive sleep apnea 02/26/2020 Overview (01/19/2024): [facility] Home Sleep Apnea Test: Date 02/18/2020; [...] Description 04/17/2024 11:45 AM EST Ancillary Procedure [facility] [address] [place] [address] 03/12/2024 12:00 PM EST Ancillary Procedure [facility] - [address] [place] [address] 02/23/2024 4:15 PM EST Ancillary Procedure [facility] [address] [place] [address] 02/19/2024 Telephone [facility] [address] [place] [address] He Butt, RN appointment with EP DAHIANA [...] HISTORICAL LUMB LAMINECTOMY; COMMENT: COLONOSCOPY 11/23/2007 PROCEDURE: RI COLONOSCOPY FLX DX W/COLLJ SPEC WHEN PFRMD; [...] years. Type 2 diabetes mellitus, co ntrolled ([facility]) 03/30/2015 DX:Type 2 diabetes mellitus, controlled ([facility]) Flexor tenosynovitis of finger 07/28/2016 D X:Flexor [...] Comments Father (Age 82) Kidney [place], [place] at 41, CABG 53, carotid endarterectomy, RENAL CA, neuropathy Maternal Grandfather (Age 88) CH F Maternal Grandmother (Age 91) CH F Mother Alive Thyroid cancer; back prob; dementia Paternal Grandfather (Age 68) [place] Paternal Grandmother (Age 91) FT T; neuropathy [...] Description 05/29/2024 9:40 AM EDT Office Visit [facility] - [facility] [address] [facility] [address] [place] [address] Celestina Kohli PA [address] [place] [address] Health Maintenance Due Date Last Done Comments [...] this topic Medical Devices Implanted Type Area Mail Distributor Device Identifier Shelf Expiration Date Model / Serial / Lot Bsci-Crm [id number] Implanted:03/2020 (Quantity not on file) Cardiac Loop Recorder [employer] MGMT M301 / [id number] / Procedures Procedure Name Priority Date/Time Associated [...] period is included. Date Time Interrogation Session [id number] CV DEVICE CHECK Type Interrogation Session Remote Device Initiated CV DEVICE CHECK Implantable Pulse Generator Mail Distributor BSX CV DEVICE CHECK Implantable Pulse Generator Type ILR CV DEVICE CHECK Implantable Pulse Generator Model M301 CV DEVICE CHECK Implantable Pulse Generator Serial Number [id number] CV DEVICE CHECK Implantable Pulse Generator Implant [...] ILR battery at end of life. Result [facility] Leyda Mosley MD CV IMPLANTABLE CARDIAC DEV ICE PROCEDURES Final Result * Annual BMP Blood Test (09/05/2022) Pathologist [facility] Annual BMP Blood Test Abstracted Result [facility] Provider HEALTH MAINTENANCE Final Result * Diabetes Eye Exam (12/06/2019) [facility] Diabetes: Annual Retina Eye Exam Abstracted Result [facility] Provider HEALTH MAINTENANCE Final Result * Hemoglobin A1c (11/15/2019) [facility] Hemoglobin A1C 6.3 <=6.5 % Blood Venous blood specimen / Unknown Result [facility] Provider LAB BLOOD ORDERABLES Akanksha l Result * Hepatitis C Screening (09/23/2019) [facility] Hepatitis C Screening Abstracted Result [facility] Provider HEALTH MAINTENANCE Final Result * Diabetes Foot Exam (02/21/2019) [facility] Diabetes: Annual Foot Exam Abstracted Result [facility] Provider HEALTH MAINTENANCE Final Result * Lipid panel (02/15/2019) [facility] LDL/HDL Ratio 4 0 - 4 Triglycerides 142 0 - 150 mg/dL Cholesterol 163 0 - 200 mg/dL HDL 45 >=40 mg/dL LDL Cholesterol 90 0 - 100 mg/dL Blood Venous blood specimen / Unknown Result [facility] Provider LAB BLOOD ORDERABLES Akanksha l Result * Urine Albumin Creatinine Ratio (10/09/2018) [facility] Urine Albumin Creatinine Ratio Abstracted Result [facility] Provider HEALTH MAINTENANCE Final Result * Colonoscopy (04/23/2018) [facility] Colonoscopy No Interpretation , Abstracted Anatomical Region Laterality Modality Other Result [facility] Provider HEALTH MAINTENANCE Final Result from Last 3 Months or Most Recently Relevant to Health Maintenance Insurance [employer] Care Teams Motor Inspection Mechanic Relationship Specialty Start Date End Date Negra Dodd MD PCP - General Internal Medicine 01/08/21
== END 2024-05-09 09:52 | disposition home or self-care (01) ==
PROVIDERS: PCP Internal Medicine; Visit Provider Internal Medicine
DX: I10 Essential (primary) hypertension (principal); E78.2 Mixed hyperlipidemia; E11.42 Type 2 diabetes mellitus with diabetic polyneuropathy

== ENCOUNTER 2024-06-11 11:00 | Outpatient (REF) | payer OTHER, SELFPAY ==
--- OUTSIDE RECORDS SUMMARY | 2024-06-11 13:23 | XMS_ITS | Encounter Summary ---
[facility] Organization [facility] [address] Care Team Providers Care Yeast Supervisor Name Role Phone Negra Dodd MD Primary Care Provider [phone] Encounter Details Date Type Department Care Team (Late Contact Info) Description 06/07/2024 6:55 PM EDT Ancillary Procedure [facility] - [facility] [address] [facility] [address] [place] [phone] Social History Tobacco Use Types Packs/Day Years [...] Encounters Date Type Department Care Team (Late Contact Info) Description 06/28/2024 11:30 AM EDT Hospital Encounter [facility] [place] [address] [place] [phone] Leyda Mosley MD 300 [facility] [address] [place] [address] Implantable loop recorder present 06/28/2024 11:30 AM EDT - 06/28/2024 12:00 PM EDT Surgery [facility] [place] [address] [place] [phone] Leyda Mosley MD [address] [place] [address] Loop recorder removal [45829 (CPT??)] 12/02/2024 8:10 AM EDT Office Visit [facility] - [address] [place] [address] Celestina Kohli PA [address] [place] [address] documented as of this encounter Procedures Procedure Name Priority Date/Time Associated Diagnosis Comments CARDIAC DEVICE CHECK- REMOTE- MURJ Routine 06/07/2024 6:53 PM EDT documented in this encounter Results * Cardiac device check - Remote- MURJ (06/07/2024 6:53 PM EDT) Date Time Interrogation Session [id number] CV DEVICE CHECK Type Interrogation Session Remote Scheduled CV DEVICE CHECK Implantable Pulse Generator Wireless Team Member BSX CV DEVICE CHECK Implantable Pulse Generator Type ILR CV DEVICE CHECK Implantable Pulse Generator Model M301 CV DEVICE CHECK Implantable Pulse Generator Serial Number [id number] CV DEVICE CHECK Implantable Pulse Generator Implant Date 20201204 CV DEVICE CHECK Battery Status Beginning of Service CV DEVICE CHECK Atrial Tachy Statistic AT/AF [place] Percent 0.00 CV DEVICE CHECK Date of Service 2023-12-03 CV DEVICE CHECK Anatomical Region Laterality Modality Device Interroga tion 11/27/2023 12:4 6 AM EDT Impressions 12/03/2023 11:29 PM EDT Normal Remote: No Events ?? Narrative Procedure Note Leyda Mosley MD - 06/07/2024 IMPRESSION: Normal Remote: No Events us Leyda Mosley MD CV IMPLANTABLE CARDIAC DEV ICE PROCEDURES Final Result documented in this encounter Visit Diagnoses Not on filedocumented in this encounter Care Teams Yeast Supervisor Relationship Specialty Start Date End Date Negra Dodd MD [address] [place] [address] PCP - General Internal Medicine 05/27/24 documented as of this encounter
--- OUTSIDE RECORDS SUMMARY | 2024-06-11 13:23 | XMS_ITS | Encounter Summary ---
Author Organization [employer] [place] [address] Care Team Providers Care Grain Wafer Machine Operator Name Role Phone Negra Dodd MD Primary Care Provider [phone] Reason for Visit * Reason Onset Date Comments Procedure 06/06/2024 ILR Removal 4. . Encounter Details Date Type Department Care Team (Late st Contact Info) Description 06/06/2024 Telephone [facility] - [facility] [address] [facility] [address] [place] [address] Leyda Mosley MD 300 [facility] [address] [place] [address] Procedure (ILR Removal 4.) Social History Tobacco Use Types Packs/Day Years [...] AM EST documented as of this encounter Progress Notes * Chantal Campbell - 06/06/2024 9:15 AM EDT ILR Removal [id number] Dx RAYMOND [id number] w/ SR at [facility] on 06.28.24 * Chantal Campbell - 06/06/2024 9:12 AM EDT Spoke with patient about procedure. Scheduled on 06.28.[address] Mosley at [facility] at 1130am Mailing packet to patient today Packet mailed to patient includes instructions with medications, follow-up, lab orders, pre/post procedural care, my direct number and pamphlet for procedure Confirmed address on file Arrival time 1030am Bloodwork to be done within 30 days of and or at least a week before procedure at any lab of choice, *[facility], [facility] or [facility]* (Labs are not fasting) - ATTACHED TO PACKET (3 papers stapled together) Medication instructions are to hold: ELIQUIS morning of procedure. Hold OZEMPIC a week before procedure You can take all your regular morning medications with some water These instructions are given verbal and written and understood Patient aware of importance of NOT missing any anticoagulation for 4 weeks. - if you do call us to reschedule do not wait to arrive at procedure date. Patient aware if they do NOT follow these instructions or show up to procedure they will have to berescheduled to next available which could take up to 6 to 10 weeks. Patient will have to be fasting from midnight night before procedure. Patient is to report to [facility] to the 3rd floor - Near Patient Registration Patient agreed to all instructions and date, time and location above via phone Case Request sent documented in this encounter Plan of Treatment Upcoming Encounters Date Type Department Care Team (Late st Contact Info) Description 06/28/2024 11:30 AM EDT Hospital Encounter [facility] Cardiac Mid Level Business Analyst [address] [place] [phone] Leyda Mosley MD [address] [place] [address] Implantable loop recorder present 06/28/2024 11:30 AM EDT - 06/28/2024 12:00 PM EDT Surgery [facility] Cardiac Mid Level Business Analyst [address] [place] [phone] Leyda Mosley MD [address] [place] [address] Loop recorder removal [[id number] (CPT??)] 12/02/2024 8:10 AM EDT Office Visit [facility] - [facility] [address] [facility] 154 [place] [address] Celestina Kohli PA [address] [place] [address] Scheduled Orders Name Type Priority Associated Diagnoses Orde r Schedule Basic metabolic panel Lab Routine Implantable loop recorder present 1 Occurrences starting 06/06/2024 until 06/06/2025 CBC and differential Lab Routine Implantable loop recorder present 1 Occurrences starting 06/06/2024 until 06/06/2025 Prothrombin time with INR Lab Routine Implantable loop recorder present 1 Occurrences starting 06/06/2024 until 06/06/2025 documented as of this encounter Visit Diagnoses Diagnosis Implantable loop recorder present- Primary Implantable loop recorder present- Primary Implantable loop recorder present documented in this encounter Orders Case Request Count Last Ordered Date First Orde red Date CASE REQUEST EP LAB 1 06/06/2024 documented in this encounter Care Teams Grain Wafer Machine Operator Relationship Specialty Start Date End Date Negra Dodd MD [address] [place] [address] PCP - General Internal Medicine 05/27/24 documented as of this encounter
--- OUTSIDE RECORDS SUMMARY | 2024-06-11 13:24 | XMS_ITS | Encounter Summary ---
Author Organization [facility] [place] [address] Care Team Providers Care Kiln Door Repairer Name Role Phone Negra Dodd MD Primary Care Provider [phone] Encounter Details Date Type Department Care Team (Late Contact Info) Description 06/07/2024 11:20 PM EDT Ancillary Procedure [facility] - [facility] [address] [facility] [address] [place] [phone] Social History Tobacco Use Types Packs/Day Years [...] Description 06/28/2024 11:30 AM EDT Hospital Encounter [facility] Cardiac Chain Carrier [address] [place] [phone] Leyda Mosley MD 300 [facility] [address] [place] [address] Implantable loop recorder present 06/28/2024 11:30 AM EDT - 06/28/2024 12:00 PM EDT Surgery [facility] Cardiac Chain Carrier [address] [place] [phone] Leyda Mosley MD [address] [place] [address] Loop recorder removal [[id number] (CPT??)] 12/02/2024 8:10 AM EDT Office Visit [facility] - [address] [place] [address] Celestina Kohli PA [address] [place] [address] documented as of this encounter Procedures Procedure Name Priority Date/Time Associated Diagnosis Comments CARDIAC DEVICE CHECK- REMOTE- MURJ Routine 06/07/2024 11:19 PM EDT documented in this encounter Results * Cardiac device check - Remote- MURJ (06/07/2024 11:19 PM EDT) Date Time Interrogation Session [id number] CV DEVICE CHECK Type Interrogation Session Remote Scheduled CV DEVICE CHECK Implantable Pulse Generator Room Service Associate BSX CV DEVICE CHECK Implantable Pulse Generator Type ILR CV DEVICE CHECK Implantable Pulse Generator Model M301 CV DEVICE CHECK Implantable Pulse Generator Serial Number [id number] CV DEVICE CHECK Implantable Pulse Generator Implant Date 20201204 CV DEVICE CHECK Battery Status Beginning of Service CV DEVICE CHECK Atrial Tachy Statistic AT/AF [place] Percent 0.00 CV DEVICE CHECK Date of Service 2023-10-29 CV DEVICE CHECK Anatomical Region Laterality Modality Device Interroga tion 10/23/2023 12:4 1 AM EDT Impressions 10/29/2023 8:54 PM EDT Normal Remote: No Events ?? Narrative Procedure Note Leyda Mosley MD - 06/07/2024 IMPRESSION: Normal Remote: No Events us Leyda Mosley MD CV IMPLANTABLE CARDIAC DEV ICE PROCEDURES Final Result documented in this encounter Visit Diagnoses Not on filedocumented in this encounter Care Teams Kiln Door Repairer Relationship Specialty Start Date End Date Negra Dodd MD [address] [place] [address] PCP - General Internal Medicine 05/27/24 documented as of this encounter
--- OUTSIDE RECORDS SUMMARY | 2024-06-11 13:24 | XMS_ITS | Clinical Summary ---
Author Organization [facility] Address [address] [place] [address] Care Team Providers Care Braiding Machine Operator Name Role Phone Unknown, Primary [...] age to complete this topic Care Teams Braiding Machine Operator Relationship Specialty Start Date End Date Unknown, PCP - General 11/09/22
--- OUTSIDE RECORDS SUMMARY | 2024-06-11 13:24 | XMS_ITS | Clinical Summary ---
Author Organization [address] [facility] Address [address] [place] [address] Phone Care Team Providers Care Radio Despatcher Name Role Phone Negra Dodd MD Primary Care Provider [phone] Allergies No known active allergies Medications blood sugar diagnostic (ONETOUCH ULTRA TEST MISC) [...] capsule TAKE 1 CAPSULE DAILY 0 Active aspirin (ASPIR-81 ORAL) Take 1 tablet by mouth daily. 05/30/19 25 Discontinu ed(Therapy completed) Active Problems Problem Noted Date Diagnosed Date Implantable loop recorder present 06/06/2024 Coronary artery disease invo lving [place] coronary artery of [place] heart without angina pectoris 08/07/2023 Hyperlipidemia 08/07/2023 Paroxysmal atrial fibrillation 09/01/2022 Syncope and collapse 11/04/2020 Obstructive sleep apnea 02/26/2020 Overview (01/19/2024): [facility] Home Sleep Apnea Test: Date [...] Encounters Date Type Department Care Team Description 06/07/2024 11:20 PM EDT Ancillary Procedure [facility] - [address] [place] [address] 06/07/2024 6:55 PM EDT Ancillary Procedure [facility] - [address] [place] [address] 06/06/2024 Telephone [facility] - [address] [place] [address] Leyda Barrios MD Procedure (ILR Removal 4.25.25) 05/29/2024 9:40 AM EDT Office Visit [facility] - [address] [place] [address] Celestina Kohli PA Paroxysmal atrial fibrillation (CMS/HCC) (Primary Dx); Coronary artery disease involving miccosukee coronary artery of [place]ukee heart without angina pectoris; Essential hypertension, benign 05/29/2024 Telephone [facility] - [address] [place] [address] Celestina Kohli PA 05/28/2024 Telephone [facility] - [address] [place] [address] Celestina Kohli PA cortisone injection (Cortisone injection ) 04/17/2024 11:45 AM EST Ancillary Procedure [facility] - [address] [place] [address] from Last 3 Months Immunizations Name Administration [...] HISTORICAL LUMB LAMINECTOMY; COMMENT: COLONOSCOPY 11/23/2007 PROCEDURE: [place] COLONOSCOPY FLX DX W/COLLJ SPEC WHEN PFRMD; [...] years. Type 2 diabetes mellitus, co ntrolled ([facility]/HCC) 03/30/2015 DX:Type 2 diabetes mellitus, controlled ([facility]) Flexor tenosynovitis of finger 07/28/2016 D X:Flexor [...] Comments Father (Age 82) [place] 41, CABG 53, carotid endarterectomy, RENAL CA, neuropathy Maternal Grandfather (Age 88) CH F Maternal Grandmother (Age 91) CH F Mother Alive Thyroid cancer; back prob; dementia Paternal Grandfather (Age 68) [place] Paternal Grandmother (Age 91) FT T; neuropathy [...] Sign Reading Time Taken Comments Blood Pressure 132/68 05/29/2024 9:58 AM EDT Pulse 68 05/29/2024 9:36 AM EDT Temperature - - Respiratory Rate - - Oxygen Saturation 99% 05/29/2024 9:36 AM EDT Inhaled Oxygen Concentration - - Weight 115 kg (253 lb) 05/29/2024 9:36 AM EDT Height 190.5 cm (6' 3 ) 05/29/2024 9:36 AM EDT Body Mass Index 31.62 05/29/2024 9:36 AM EDT Plan of Treatment Upcoming Encounters Date Type Department Care Team (Late st Contact Info) Description 06/28/2024 11:30 AM EDT Hospital Encounter [facility] Cardiac Emergency Veterinary Technician [address] [place] [phone] Leyda Barrios MD [address] [place] [address] Implantable loop recorder present 06/28/2024 11:30 AM EDT - 06/28/2024 12:00 PM EDT Surgery [facility] Cardiac Emergency Veterinary Technician [address] [place] [phone] Leyda Barrios MD 300 [facility] [address] [place] [address] Loop recorder removal [[id number] (CPT??)] 12/02/2024 8:10 AM EDT Office Visit [facility] - [facility] [address] [facility] [address] [place] [address] Celestina Kohli PA 300 [facility] [address] [place] [address] Health Maintenance Due Date Last Done Comments RSV Immunization Adult Patients (1 - Risk 60-74 years 1-dose series) [...] Vaccine ( season) 2023 01/25/2021, 06/05/2020, 05/08/2020 Cholesterol Screening (Lipid Panel) 02/16/2024 02/15/2019 Influenza Vaccine (Season Ended) 2024 04/03/2023, 01/04/2022, 12/10/2020, Additional history exists Colorectal Cancer Screening: Colonoscopy 04/23/2028 04/23/2018 DTaP,Tdap,and [...] age to complete this topic Meningococcal B Vaccine Aged Out No l onger eligible based on patient's age to complete this topic RSV Immunization Patients Under 20 months Aged Out No longer eligible based on patient's age to complete this topic Varicella Vaccines Aged Out No longer eligible based on patient's age to complete this topic Medical Devices Implanted Type Area Rural Mail Carrier Device Identifier Shelf Expiration Date Model / Serial / Lot Bsci-Crm [id number] Implanted:03/2020 (Quantity not on file) Cardiac Loop Recorder [employer] CARD RHYTHM MGMT [id number] / [id number] / Procedures Procedure Name Priority Date/Time Associated Diagnosis Comments CARDIAC DEVICE CHECK- REMOTE- MURJ Routine 06/07/2024 11:19 PM EDT CARDIAC DEVICE CHECK- REMOTE- MURJ Routine 06/07/2024 6:53 PM EDT ECG 12-LEAD Routine 05/29/2024 11:04 AM EDT Paroxysmal atrial fibrillation (CMS/HCC) CARDIAC DEVICE CHECK- REMOTE- MURJ Routine 04/17/2024 11:44 AM EST ANNUAL BMP BLOOD TEST Routine 09/05/2022 DIABETES EYE EXAM Routine 12/06/2019 HEMOGLOBIN A1C Routine 11/15/2019 HEPATITIS C SCREENING Routine 09/23/2019 DIABETES FOOT EXAM Routine 02/21/2019 LIPID PANEL Routine 02/15/2019 URINE ALBUMIN CREATININE RATIO Routine 10/09/2018 COLONOSCOPY Routine 04/23/2018 from Last 3 Months or Most Recently Relevant to Health Maintenance Results * Cardiac device check - Remote- MURJ (06/07/2024 11:19 PM EDT) Only the most recent of3 resultswithin the time period is included. Date Time Interrogation Session [id number] CV DEVICE CHECK Type Interrogation Session Remote Scheduled CV DEVICE CHECK Implantable Pulse Generator Rural Mail Carrier BSX CV DEVICE CHECK Implantable Pulse Generator Type ILR CV DEVICE CHECK Implantable Pulse Generator Model M301 CV DEVICE CHECK Implantable Pulse Generator Serial Number [id number] CV DEVICE CHECK Implantable Pulse Generator Implant Date 20201204 CV DEVICE CHECK Battery Status Beginning of Service CV DEVICE CHECK Atrial Tachy Statistic AT/AF [place] Percent 0.00 CV DEVICE CHECK Date of Service 2023-10-29 CV DEVICE CHECK Anatomical Region Laterality Modality Device Interroga tion 10/23/2023 12:4 1 AM EDT Impressions 10/29/2023 8:54 PM EDT Normal Remote: No Events ?? Narrative Procedure Note Leyda Barrios MD - 06/07/2024 IMPRESSION: Normal Remote: No Events us Leyda Barrios MD CV IMPLANTABLE CARDIAC DEV ICE PROCEDURES Final Result * ECG 12 lead (05/29/2024 11:04 AM EDT) Ventricular Rate ECG 63 BPM GEMUSE Atrial Rate 63 BPM GEMUSE P-R Interval 172 ms GEMUSE QRS Duration 96 ms GEMUSE Q-T Interval 422 ms GEMUSE QTc 431 ms GEMUSE P Wave Antler 48 degrees GEMUSE R Antler 46 degrees GEMUSE T Antler 37 degrees GEMUSE ECG Interpretation Normal sinus rhythm Nonspecific T wave abnormality When compared with ECG of 10-JUL-2018 17:39, Nonspecific T wave abnormality now evident in Lateral leads Confirmed by AYDEN BARRIOS ([id number]) on 05/30/2024 8:35:08 PM GEMUSE 05/29/2024 9:42 AM EDT 05/30/2024 8:35 PM EDT Celestina SHERWOOD ECG ORDERABLES Edited Result - Final GEMUSE * Annual BMP Blood Test (09/05/2022) [facility] Annual BMP Blood Test Abstracted Result [facility] Provider HEALTH MAINTENANCE Final Result * Diabetes Eye Exam (12/06/2019) [facility] Diabetes: Annual Retina Eye Exam Abstracted Result [facility] Provider HEALTH MAINTENANCE Final Result * Hemoglobin A1c (11/15/2019) [facility] Hemoglobin A1C 6.3 <=6.5 % Blood Venous blood specimen / Unknown Result [facility] Provider LAB BLOOD ORDERABLES Akanksha l Result * Hepatitis C Screening (09/23/2019) [facility] Hepatitis C Screening Abstracted Result [facility] Provider HEALTH MAINTENANCE Final Result * Diabetes Foot Exam (02/21/2019) [facility] Diabetes: Annual Foot Exam Abstracted Result [facility] Provider HEALTH MAINTENANCE Final Result * Lipid panel (02/15/2019) [facility] LDL/HDL Ratio 4 0 - 4 Triglycerides 142 0 - 150 mg/dL Cholesterol 163 0 - 200 mg/dL HDL 45 >=40 mg/dL LDL Cholesterol 90 0 - 100 mg/dL Blood Venous blood specimen / Unknown Historical Provider LAB BLOOD ORDERABLES Akanksha l Result * Urine Albumin Creatinine Ratio (10/09/2018) Urine Albumin Creatinine Ratio Abstracted Historical Provider HEALTH MAINTENANCE Final Result * Colonoscopy (04/23/2018) Colonoscopy No Interpretation , Abstracted Anatomical Region Laterality Modality Other Historical Provider HEALTH MAINTENANCE Final Result from Last 3 Months or Most Recently Relevant to Health Maintenance Insurance [employer] Care Teams Radio Despatcher Relationship Specialty Start Date End Date Negra Dodd MD [address] [place] [address] [address] [place], [place] [id number] PCP - General Internal Medicine 05/27/24
[2024-06-11 14:07] LABS: MANUAL DIFF FLAG NO
[2024-06-11 14:17] LABS: Basophils Absolute Auto 0.1 X10*3/uL (0.0-0.2); Basophils Percent Auto 1.1 % (0-2); Eosinophils Absolute Auto 0.5 X10*3/uL (0.0-0.4); Eosinophils Percent Auto 7.6 % (0-4); Hematocrit 42.3 % (42.0-52.0); Hemoglobin 14.3 g/dl (14.0-18.0); Imm Gran Abs Auto 0.03 X10*3/uL (0.00-0.03); Imm Gran Pct Auto 0.4 % (0.0-0.4); Lymphocytes Absolute Auto 1.8 X10*3/uL (1.2-4.9); Lymphocytes Percent Auto 25.7 % (20-40); Mean Corpuscular HGB Conc 33.8 g/dl (31.0-36.0); Mean Corpuscular Hemoglobin 30.1 pg (27.0-33.0); Mean Corpuscular Volume 89.1 fL (80.0-98.0); Mean Platelet Volume 9.7 fL (9.4-12.4); Monocytes Absolute Auto 0.7 X10*3/uL (0.1-1.2); Monocytes Percent Auto 10.4 % (2-11); Neutrophils Absolute Auto 3.9 x10*3/uL (2.0-8.3); Neutrophils Percent Auto 54.8 % (45-73); Platelet Count 285 X10*3/uL (160-400); Red Blood Count 4.75 X10*6/uL (4.60-5.80); Red Cell Distribution Width 12.5 % (11.0-16.0); White Blood Count 7.1 X10*3/uL (4.8-10.8)
[2024-06-11 14:21] LABS: INTERNATIONAL NORM RATIO 1.3 (0.9-1.1); Prothrombin Time 14.9 SEC (10.9-12.4)
[2024-06-11 14:30] LABS: Estimated Average Glucose 123 mg/dL; Hemoglobin A1C 151.3872 umol/L; Hemoglobin A1c % 5.9 % (<6.0); Total Hemoglobin (HGBA1C) 3739.5179 umol/L
[2024-06-11 14:45] LABS: Alanine Aminotransferase 55 U/L (0-40); Alkaline Phosphatase 64 U/L (39-117); Anion Gap 10 (12-20); Aspartate Amino Transferase 52 U/L (5-37); Bilirubin Direct 0.2 mg/dL (0.0-0.5); Bilirubin Total 0.4 mg/dL (0.0-1.0); Blood Urea Nitrogen 14 mg/dL (9-16); Calcium 9.8 mg/dL (8.4-10.2); Carbon Dioxide 31 mmol/L (22-29); Chloride 102 mmol/L (96-108); Estimated Glomerular Filt Rate > 60; Glucose Random 87 mg/dL (60-115); Potassium 3.7 mmol/L (3.3-5.1); Sodium 139 mmol/L (135-145); Total Protein 7.3 g/dL (6.5-8.0)
== END 2024-06-11 11:01 | disposition home or self-care (01) ==
LOC: HO.WFDLDS 11:00
PROVIDERS: Referring Provider Internal Medicine Clinical Cardiac Electrophysiology; Visit Provider Internal Medicine
DX: Z95.818 Presence of other cardiac implants and grafts (principal); E11.51 Type 2 diabetes mellitus with diabetic peripheral angiopathy without gangrene; M54.16 Radiculopathy, lumbar region; I10 Essential (primary) hypertension
CPT/HCPCS: 36415; 80053; 82248; 83036; 85025; 85610

== ENCOUNTER 2024-07-02 07:47 | Outpatient (AMB) | payer OTHER, SELFPAY ==
--- OUTSIDE RECORDS SUMMARY | 2024-07-02 07:50 | XMS_ITS | Encounter Summary ---
Author Organization [employer] Address [address] [place] [address] Care Team Providers Care Stock Tracer Name Role Phone Negra Dodd MD Primary Care Provider [phone] Reason for Visit * Auth/Cert (Routine) Specialty Diagnoses / Procedures Referred By Danny leon Referred To Contact Diagnoses Implantable loop recorder present RAYMOND Procedures ME REMOVAL SUBCUTANEOUS CARDIAC RHYTHM MONITOR Loop recorder removal Leyda Mosley MD [address] [facility] [address] [place] [address] Phone: tel: fax: [facility] Cardiac Endless Track Vehicle Mechanic [address] [place] [address] Phone: tel: Referral ID Status Reason Start Date Expiration Date Visits Re quested Visits Authorized [id number] 1 1 Encounter Details Date Type Department Care Team (Late st Contact Info) Description 06/28/2024 11:30 AM EDT - 06/28/2024 12:00 PM EDT Surgery [facility] Cardiac Endless Track Vehicle Mechanic [address] [place] [address] Leyda Mosley MD [address] [facility] [address] [place] [address] Loop recorder removal [19663 (CPT??)] Social History Tobacco Use Types Packs/Day Years [...] AM EST documented as of this encounter Last Filed Vital Signs Vital Sign Reading Time Taken Comments Blood Pressure 134/90 06/28/2024 10:49 AM EDT Pulse 45 06/28/2024 10:49 AM EDT Temperature 36.4 ??C (97.6 ??F) 06/28/2024 10:49 AM E DT Respiratory Rate 18 06/28/2024 10:49 AM EDT Oxygen Saturation 94% 06/28/2024 10:49 AM EDT Inhaled Oxygen Concentration - - Weight 109 kg (240 lb) 06/28/2024 10:49 AM EDT Height 190.5 cm (6' 3 ) 06/28/2024 10:49 AM EDT Body Mass Index 30 06/28/2024 10:49 AM EDT documented in this encounter Discharge Instructions * Discharge Instructions* Roxanne Resendez NP - 06/28/2024 11:37 AM EDT If dressing is present remove in three days External glue will flake off all on it's own, please avoid touching incision. Apply no ointments. No in office follow up is necessary You may resume driving when you feel up to it Extra strength Tylenol per report clerk directions Phone the [facility] Cardiology office at [phone] with any questions or concerns documented in this encounter Medications at Time of Discharge apixaban (ELIQUIS) 5 mg tablet Take 5 mg by mouth 2 times daily. 08/30/2022 azelastine (ASTELIN) 137 mcg (0.1 %) nasal spray 2 Puffs by Nasal route 2 times daily. 09/28/2022 blood sugar diagnostic (L2UCH ULTRA TEST [facility]) Test glucose once weekly 11/15/2019 chlorthalidone (HYGROTON) 25 mg tablet Take 1 Tablet by mouth daily. ezetimibe (ZETIA) 10 mg tablet TAKE 1 TABLET BY MOUTH EVERY DAY 08/31/2023 fluticasone propionate (FLONASE) 50 mcg/actuation nasal spray 2 Sprays by Nasal route daily. 04/27/2020 gabapentin (NEURONTIN) 800 mg tablet Take 1 Tablet by mouth 2 times daily. 01/23/2019 multivit-min/iron/ folic acid/K (ADULTS MULTIVITAMIN ORAL) Take 1 tablet by mouth daily. [employer] Ultra Test test strip Check blood glucose once weekly 11/15/2019 rosuvastatin (CRESTOR) 40 mg tablet Take 1 Tablet by mouth daily. 08/07/2023 semaglutide (Ozempic) 0.25 mg or 0.5 mg(2 mg/1.5 mL) injection pen Inject into the skin once a week. tamsulosin (FLOMAX) 0.4 mg 24 hr capsule TAKE 1 CAPSULE DAILY 02/14/2020 documented as of this encounter Discharge Disposition Disposition Code Departure Means Destination Comment s Home or Self Care documented in this encounter Procedure Notes * Zulema Spence RN - 06/28/2024 11:57 AM EDT Dressing dry and intact . No c/o. documented in this encounter Plan of Treatment Upcoming Encounters Date Type Department Care Team (Late st Contact Info) Description 12/02/2024 8:10 AM EDT Office Visit [facility] - [address] [place] [address] Celestina Kohli PA [address] [place] [address] Pending Results Name Type Priority Associated Diagnoses Date/Time Electrophysiology procedure Electrophysiology Routine Implantable loop recorder present 06/28/2024 11:52 AM EDT documented as of this encounter Procedures Procedure Name Priority Date/Time Associated Diagnosis Comments LOOP RECORDER REMOVAL Routine 06/28/2024 11:52 AM EDT Implantable loop recorder present Procedure Note - Leyda Mosley MD - 06/28/2024 11:52 AM EDTThis note is in progress. Removal of a cardiac event recorder. Findings Study Details 69-year-old gentleman past med history of paroxysmal atrial fibrillation with a [id number] or of 5 points. Device has reached the elective replacement indicator. He has an implantable loop recorder. Plan is for explantation. Procedure Details Patient brought to the EP lab holding area in a fasting state. He was consented prior to procedure. He was prepped and draped in a sterile fashion. Lidocaine was given over the prior incision. I have the device without significant difficulty. I closed incision with a 2-0 Vicryl. Dermal glue was placed over the incision. Device is about scientific M301. Sodium is [id number]. Implanted 12/04/2020. documented in this encounter Visit Diagnoses Diagnosis Implantable loop recorder present- Primary Paroxysmal atrial fibrillation (CMS/HCC V24, CMS/HCC V28) Atrial fibrillation Implantable loop recorder present documented in this encounter Admitting Diagnoses Diagnosis Implantable loop recorder present documented in this encounter Administered Medications Inactive Administered Medications - up to 3 most recent administrations Medication Order MAR Action Action Date Dose Rate Site lidocaine-EPINEPHrine (XYLOCAINE W/EPI) 1 %-1:100,000 injection As needed, Starting on Mon06/28/24 at 1137, Intraprocedure Given 06/28/2024 11:37 AM EDT 8 mL documented in this encounter Active and Recently Administered Medications Times are shown in EDT. PRN Medication Order 06/26/2024 06/27/2024 06/28/2024 lidocaine-EPINEPHrine (XYLOCAINE W/EPI) 1 %-1:100,000 injection (CANCELED) As needed, Starting on Mon06/28/24 at 1137, Intraprocedure 1137 (Given - Provid er: Leyda Mosley MD) documented in this encounter Orders Discharge Count Last Ordered Date First Orde red Date DISCHARGE PATIENT 1 06/28/2024 documented in this encounter Care Teams Stock Tracer Relationship Specialty Start Date End Date Negra Dodd MD [address] [place] [address] PCP - General Internal Medicine 05/27/24 documented as of this encounter
--- OUTSIDE RECORDS SUMMARY | 2024-07-02 07:50 | XMS_ITS | Encounter Summary ---
Author Organization [employer] Address [address] [place] [address] Care Team Providers Care Ceramics Test Engineer Name Role Phone Negra Dodd MD Primary Care Provider [phone] Reason for Visit * Auth/Cert (Routine) Specialty Diagnoses / Procedures Referred By Danny leon Referred To Contact Diagnoses Implantable loop recorder present RAYMOND Procedures MO REMOVAL SUBCUTANEOUS CARDIAC RHYTHM MONITOR Loop recorder removal Leyda Mosley MD [address] [address] Phone: tel: fax: [facility] Cardiac Cafeteria Worker [address] [place] [address] Phone: tel: Referral ID Status Reason Start Date Expiration Date Visits Re quested Visits Authorized [id number] 1 1 Encounter Details Date Type Department Care Team (Late st Contact Info) Description 06/28/2024 10:34 AM EDT - 06/28/2024 2:50 PM EDT Hospital Encounter [facility] Cardiac Cafeteria Worker [address] [place] [address] Leyda Mosley MD [address] [facility] [address] [place] [address] Implantable loop recorder present Discharge Disposition: Home or Self Care Social History Tobacco Use Types Packs/Day Years [...] up to it Extra strength Tylenol per silhouette artist directions Phone the [facility] Cardiology office at [phone] with any questions or concerns documented in this encounter Medications at Time of Discharge apixaban (ELIQUIS) 5 mg tablet Take 5 mg by mouth 2 times daily. 08/30/2022 azelastine (ASTELIN) 137 mcg (0.1 %) nasal spray 2 Puffs by Nasal route 2 times daily. 09/28/2022 blood sugar diagnostic (Wear InnsUCH ULTRA TEST [facility]) Test glucose once weekly 11/15/2019 chlorthalidone (HYGROTON) [...] ORAL) Take 1 tablet by mouth daily. [employer] Ultra Test test strip Check blood glucose [...] Description 12/02/2024 8:10 AM EDT Office Visit [facility] - [address] [place] [address] Celestina Kohli PA [address] [place] [address] Pending Results Name Type Priority Associated Diagnoses [...] history of paroxysmal atrial fibrillation with a [id number] or of 5 points. Device has reached [...] Device is about scientific M301. Sodium is [id number]. Implanted 12/04/2020. documented in this encounter Visit Diagnoses Diagnosis Implantable loop recorder present- Primary Paroxysmal atrial fibrillation (CMS/HCC V24, CMS/HCC V28) Atrial fibrillation Implantable loop recorder present documented in this encounter Admitting Diagnoses Diagnosis Implantable loop recorder present documented in this encounter Active and Recently Administered Medications Times are shown in EDT. PRN Medication Order 06/26/2024 06/27/2024 06/28/2024 lidocaine-EPINEPHrine (XYLOCAINE W/EPI) 1 %-1:100,000 injection (CANCELED) As needed, Starting on Mon06/28/24 at 1137, Intraprocedure 1137 (Given - Provid er: Leyda Mosley MD) documented in this encounter Orders Medications Ordered That Cruz ht Not Have Been Administered Count Last Ordered Date First Ordered Date lidocaine-EPINEPHrine (XYLOC JHON W/EPI) 1 %-1:100,000 injection 1 06/28/2024 Discharge Count Last Ordered Date First Orde red Date DISCHARGE PATIENT 1 06/28/2024 documented in this encounter Care Teams Ceramics Test Engineer Relationship Specialty Start Date End Date Negra Dodd MD [address] [place] [address] PCP - General Internal Medicine 05/27/24 documented as of this encounter
--- OUTSIDE RECORDS SUMMARY | 2024-07-02 07:50 | XMS_ITS | Clinical Summary ---
Author Organization [facility] Address [address] [place] [address] Care Team Providers Care Law Office Assistant Name Role Phone Unknown, Primary Care Provider [...] age to complete this topic Care Teams Law Office Assistant Relationship Specialty Start Date End Date Unknown, PCP - General 11/09/22
--- NOTE | 2024-07-02 08:05 | A.OFFVIS_ITS ---
Intake Visit Reasons: BPH without symptoms Intake Note: New Patient presents for initial visit for BPH Urology Medications: tamsulosin, sildenafil Blood Thinner: aspirin PVR: 0ml's [employer] Required: No Accompanied by: Self / Same As Patient Allergies No Known Allergies Allergy (Verified 07/02/24 08:23) Medication List - Last Reconciled 07/02/24 by RICKY Villagomez-KEESHA azelastine 2 sprays intranasal DAILY 30 days chlorthalidone 25 mg PO DAILY 90 days cholecalciferol (vitamin D3) 25 mcg PO DAILY cyclobenzaprine 10 mg PO TID 30 days Eliquis (apixaban) 5 mg PO BID NS ezetimibe 10 mg PO DAILY fluticasone propionate 50 mcg/actuation 2 sprays intranasal DAILY 30 days gabapentin 800 mg PO BID multivitamin 1 tab PO DAILY Ozempic (semaglutide) 1 mg (0.75 mL) subcut QWEEK NS rosuvastatin 40 mg PO DAILY 90 days sildenafil (Viagra) 100 mg PO DAILY PRN tamsulosin 0.4 mg PO DAILY 90 days [vitamin C 1700 daily] HPI Comments Details: Fuentes is a very pleasant 69-year-old male patient of Dr. Ananda De Jesus. He has a past medical history of type 2 diabetes, polyneuropathy, DEVIN, obesity, hypertension, hyperlipidemia, ED, degenerative disc disease, cervical radiculitis, BPH, AFib, and arthritis. He presents to the office today as a new patient to establish urological care. In discussion with the patient today he reports following up with his PC in discussing referral to Urology as he would like to establish urology care as he feels lately a lot of the male individuals around him have been diagnosed with prostate cancer. When asked he currently denies any bothersome urinary issues or concerns. He denies urinary urgency, urinary frequency, incontinence, nocturia, hematuria, dysuria, foul smelling urine, changes to urinary stream, flank pain, fever, and or chills. He is happy with his current voiding parameters on Flomax 0.4 mg daily. In office urinalysis results reviewed with the patient today. PVR 0 mL. In review of patient's chart it appears patient with recent abdominal ultrasound that note 5.4 cm upper pole right renal cyst. The kidneys otherwise are unremarkable without evidence of solid masses, hydronephrosis, or calculi per radiology report. PSA 04/30 1.0. DINO performed smooth and no suspicious nodules palpated. He otherwise offers no other issues or concerns at this time. History of Present Illness The patient is a 69-year-old male presenting with concerns about prostate health and the risk of prostate cancer, though he is not currently experiencing any related symptoms. He underwent a PSA test in April with a result of 1.0 ng/mL, indicating a low level of risk. The patient is taking Tamsulosin daily for benign prostatic hyperplasia and uses Sildenafil occasionally for erectile dysfunction. He reports no symptoms such as urinary frequency, nocturia, or difficulty voiding, and his urine tests indicate normal results. The patient's current anxiety revolves around proactive monitoring rather than specific symptoms, and he values the insight from a urology practitioner regarding his condition. Plan 1. 0 ng/mL. A digital rectal examination showed no concerning findings. Continued annual PSA monitoring was advised, emphasizing preventive care. The patient will continue his Tamsulosin regimen, with occasional Sildenafil use remaining as needed. A follow-up in six months is scheduled, emphasizing ongoing vigilance and timely reporting of any new symptoms. The patient understands the importance of routine screenings and is instructed to contact us if any urinary symptoms develop.: Patient was informed and verbally consented to the use of an ambient scribe for clinic note documentation during this visit. Discussion Notes In our discussion, I addressed the patient's concerns about prostate health and prostate cancer risk. His PSA level of 1.0 ng/mL reflects a low probability of current prostate cancer, and the digital rectal examination showed no concerning findings. We discussed the importance of annual monitoring, considering his age and the benign status of his condition. I offered reassurance about the achievability of effective surveillance and management. We reviewed the benefits of continued PSA testing to monitor for any changes and recommended a follow-up in six months for further evaluation. Alternative plans remain open for consideration if symptoms arise. The patient confidently agreed with the current plan. Open communication for any arising issues was emphasized as a part of his continued care strategy. [facility] Medical History Type 2 diabetes mellitus Sternoclavicular sprain Polyneuropathy Persistent cough DEVIN (obstructive sleep apnea) Obesity, Class I, BMI 30-34.9 HTN (hypertension) Hyperlipemia Erectile dysfunction DDD (degenerative disc disease), cervical Cervical radiculitis BPH (benign prostatic hyperplasia) Afib Arthritis Surgical History History of total right knee replacement Status post left knee replacement Hx of colonoscopy Social History Housing: House Alcohol intake: former Patient Tobacco Use Status: Never used Tobacco e-Cigarette/Vaping Use: Never Used Second Hand Smoke Exposure: Yes service: Yes Current occupational status: employed 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 [employer] Current occupational exposures/hazards: No Cognitive needs: No Hearing needs: No Vision needs: No Review of Systems Const All systems reviewed & are unremarkable except as noted in HPI and below Physical Exam Const General: cooperative, healthy appearing, comfortable, no acute distress, well developed, alert and awake Orientation/consciousness: patient oriented x3 Limitations: no limitations HEENT Head: Yes normal to inspection, Yes normocephalic and Yes atraumatic Ears: hearing grossly normal bilaterally Eyes General: appearance normal, both eyes and all related structures Neck Neck: Yes normal visual inspection and Yes trachea midline Chest Chest palpation & inspection: normal inspection of the chest Resp Effort & Inspection: normal respiratory effort and able to speak in complete sentences Cardio Rate: regular rate GI Inspection: Yes normal to inspection General: Yes no CVA tenderness Back/Spine/Pelvis Back: no CVA tenderness Skin General skin exam: no rashes or lesions noted Neuro General: patient oriented x3 Extrem General: Yes normal to inspection Psych Appearance: grossly normal and well kempt Mental Status: mental status grossly normal Speech and movement: Normal speech and movement present and Clear speech present Affect: normal affect Attitude: cooperative Thought process: Normal thought process present Thought content: Normal thought content present Insight: Fair insight present (Psych) Judgement: Fair judgement present (Psych) Office Procedures Post Void Residual Post Residual Void Post Void Residual (PVR): 0 [id number] Void Residual by ultrasound Results AMB Urinalysis, Automated UA Leukoctes 0 Sara/uL Last Edit by Amy Bernstein on 07/02/24 08:34 UA Nitrite Last Edit by Amy Bernstein on 07/02/24 08:34 UA Urobilinogen 0.2 mg/dL Last Edit by Arnaude Amandeep on 07/02/24 08:34 UA Protein 0 mg/dL Last Edit by Arnaude Amandeep on 07/02/24 08:34 UA pH 8.0 Last Edit by [place] 100egeronimoe Amandeep on 07/02/24 08:34 UA Blood 0 Michael/uL Last Edit by [employer] on 07/02/24 08:34 UA Specific [place] 1.010 Last Edit by [place] 100ekaryn Bernstein on 07/02/24 08:34 UA Ketone Last Edit by [place] 100ekaryn Bernstein on 07/02/24 08:34 UA Bilirubin 0 mg/dL Last Edit by [employer]a Bernstein on 07/02/24 08:34 UA Glucose 0 mg/dL Last Edit by [place] 100ekaryn Bernstein on 07/02/24 08:34 Results Reviewed Results Reviewed: Laboratory Last Values Urine pH (Auto) 8.0 07/02/24 08:08 Specific [place] (Auto) 1.010 07/02/24 08:08 Urine Protein (Auto) 0 mg/dL 07/02/24 08:08 Glucose (UA)(Auto) 0 mg/dL 07/02/24 08:08 Urine Blood (Auto) 0 Michael/uL 07/02/24 08:08 Urine Bilirubin (Auto) 0 mg/dL 07/02/24 08:08 Urine Urobilinogen (Auto) 0.2 mg/dL 07/02/24 08:08 Leukocyte Esterase (Auto) 0 Sara/uL 07/02/24 08:08 Date of Service: 03/15/24 Procedure(s): US abdomen complete FINDINGS: Liver: The liver is normal in size, but demonstrates increased echotexture, suggestive of steatosis. No focal mass or intrahepatic biliary ductal dilatation is identified. There is normal hepatopedal flow in the portal vein. Gallbladder and biliary tree: The gallbladder is unremarkable, without evidence of calculi, wall thickening, or pericholecystic fluid. There is no sonographic Ford sign. The common bile duct is normal in caliber measuring 3 mm. Kidneys: The right kidney measures 11.4 cm in length. The left kidney measures 14.1 cm in length. There is a 5.3 x 5.4 x 4.4 cm cyst at the upper pole of the right kidney. The kidneys are otherwise unremarkable, without evidence of solid masses, hydronephrosis, or calculi. Pancreas: The pancreas is obscured by bowel gas. Spleen: The spleen is normal in size and contour, measuring 12.4 cm in length. Abdominal aorta and inferior vena cava: The visualized portions of the abdominal aorta and inferior vena cava are normal in caliber. There is no free fluid in the abdomen. IMPRESSION: Increased hepatic echotexture, suggestive of steatosis. 5.3 x 5.4 x 4.4 cm right upper pole renal cyst. The pancreas is obscured by bowel gas. Assessment & Plan Assessment & Plan (1) BPH (benign prostatic hyperplasia): Code(s): N40.0 - Benign prostatic hyperplasia without lower urinary tract symptoms Category: Medical Qualifiers: Lower urinary tract symptom presence: symptoms present Lower urinary tract symptom detail: unspecified Qualified Code(s): N40.1 - Benign prostatic hyperplasia with lower urinary tract symptoms (2) Erectile dysfunction: Code(s): N52.9 - Male erectile dysfunction, unspecified Category: Medical Qualifiers: Erectile dysfunction type: due to other secondary cause Qualified Code(s): N52.1 - Erectile dysfunction due to diseases classified elsewhere Plan In office urinalysis results reviewed with the patient today; as noted above. PVR 0 mL. Recent abdominal u/s results were reviewed as noted above. Patient reports be happy with current voiding parameters on Flomax. Continue Flomax. Continue Viagra as needed Patient currently denies any bothersome urinary issues or concerns. DINO performed; as noted above Will continue with surveillance monitoring Follow-up in 6 months with PVR; or sooner with any issues, concerns, and or questions. Orders: Orders AMB Urinalysis Automated Today Z13.9 - Encounter for screening, unspecified AMB Post Void Residual by ultrasound Today N40.1 - Benign prostatic hyperplasia with lower urinary tract symptoms Patient Instructions: The patient had an opportunity to ask questions regarding the treatment plan. All questions were answered. Physical exam, labs, and imaging were discussed and reviewed in detail. As well as risks, benefits, and discussion of treatment choices. No major barriers to understanding were identified. The patient expressed understanding and agreement with the above treatment plan. The patient was made aware they should contact our office by phone for worsening of their current condition, the appearance of new symptoms, or with any questions or concerns. Compliance is encouraged with any medications and follow up testing that is ordered. It is a privilege to be allowed the opportunity to participate in? your urological care.? Again, if you have any questions or concerns If you have any questions or concerns please do not hesitate to contact me. The office is [phone]. This note is constructed using voice recognition software. While every effort has been made to ensure accuracy adoption worker errors may have been included. Yours sincerely, JESUS Villagomez Coding Level of Care Code New Pt Level 3 (32866) Diagnoses Benign prostatic hyperplasia with lower urinary tract symptoms, symptom details unspecified N40.1 Lower urinary tract symptom presence: symptoms present Lower urinary tract symptom detail: unspecified Erectile dysfunction due to diseases classified elsewhere N52.1 Erectile dysfunction type: due to other secondary cause CPT Codes Post Residual Void - PVR CPT Code: 77747-Oznv Void Residual by ultrasound ([id number])
== END 2024-07-02 08:35 | disposition home or self-care (01) ==
LOC: HO.HUSH 07:48
PROVIDERS: PCP Internal Medicine; Visit Provider Nurse Practitioner Family
DX: N40.1 Benign prostatic hyperplasia with lower urinary tract symptoms (principal); N52.1 Erectile dysfunction due to diseases classified elsewhere; Z13.9 Encounter for screening, unspecified
CPT/HCPCS: 99203

== ENCOUNTER → 2024-07-02 07:47 | Outpatient (BNVA) | payer OTHER, SELFPAY | PROVIDERS: PCP Internal Medicine; Visit Provider Nurse Practitioner Family | DX: N40.1 Benign prostatic hyperplasia with lower urinary tract symptoms (principal); N52.1 Erectile dysfunction due to diseases classified elsewhere; Z79.899 Other long term (current) drug therapy | CPT/HCPCS: 51798; 81003 ==

== ENCOUNTER 2024-08-27 08:47 | Outpatient (AMB) | payer OTHER, SELFPAY ==
--- NOTE | 2024-08-27 08:51 | MHC.PC.OV ---
Vital Signs 08/27/24 08:55 Height 6 ft 3 in Weight 243 lb 6 oz BMI 30.4 BP 126/88 Blood Pressure Location Rt brachial Position Sitting Respiration 14 Pulse 65 Pulse Source Pulse Oximeter Temp 97.6 F Temp Source Oral Pulse Oximetry (%) 98 Oxygen Delivery Method Room Air Intake Visit Reasons: DM Intake Note: Diabetes follow up Allergies No Known Allergies Allergy (Verified 07/02/24 08:23) Tobacco use date assessed: 05/09/24 Dental Screening Dental Screen Date: 08/22/23 HPI HPI Comments History of Present Illness Details The patient is a 69 year old male with a past medical history of diet controlled type 2 DM, history of ?TIA, htn, hld, BPH, DEVIN, DDD LS spine, neck, presenting for follow up. Diabetes: controlled on recent labs. Chronic neuropathy. Eye exam up to date Chronic pain -DDD lumbar spine. Issues with low back pain, sciatica. Has seen NS, PM&R. He responds well to short steroid course when symptoms flare. -Cervical DD-h/o MRI 2018 with severe bilateral foraminal stenosis C6-C7. -Shoulder pain: MRI with partial rotator cuff tears, AC joint widening. Undwent shoulder repair. A few months later felt like he moved it out of place. Pain levels have decreased over the past few months CV: Found Afib on ILR. Follows with cardiology. On AC Placed on AC. BP soft. Reports sometimes lightheaded upon standing. No recent leg or ankle swelling. Being evaluated by Dr Mosley for Watchman Neuro: memory, dysarthria stable/improved. In 2019 had what was later thought to be a TIA. When he was walking he saw flashes of light. He had suddenly developed weakness in the right leg. This persisted for 8 months before resolving. Saw 2 neurologist-MRI reviewed and a few small vessel T2 lesions, 1 in basal ganglia, cervical MRI, chem, CBC lyme, ESR, MARIA ISABEL. LS MRI with DJD. 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 In absence of motor weakness and with continue dysarthria and fatigue presumed TIA Some bilateral foot pain. continues to follow up with [facility]. He has a cyst of the right plantar lateral foot and a mass/cyst of the right miller that has not been going away Abdominal pain and bloating. Bilateral groin pain right>left. Increased with coughing. Abd u/s non diagnostic of etiology On tamsulosin for BPH, viagra for ED. Saw urology-benign prostate emax Tdap up to date colonoscopy: ROS see HPI PHYSICAL EXAM: GENERAL: Alert and oriented x 3. NAD EYES: EOMI. Anicteric. HENT: Moist mucous membranes. No scleral icterus. No cervical lymphadenopathy. LUNGS: Clear to auscultation bilaterally. CARDIOVASCULAR: Regular rate and rhythm. No murmur. No JVD. ABDOMEN: Soft, mild tender to palpation +bs EXTREMITIES: No edema. Non-tender. SKIN: 2cm slightly irritated cyst of the right miller. cyst of right lateral plantar foot NEUROLOGIC: No focal neurological deficits. CN II-XII grossly intact PSYCHIATRIC: Cooperative. Appropriate mood and affect [facility] Medical History Type 2 diabetes mellitus Sternoclavicular sprain Polyneuropathy Persistent cough DEVIN (obstructive sleep apnea) Obesity, Class I, BMI 30-34.9 HTN (hypertension) Hyperlipemia Erectile dysfunction DDD (degenerative disc disease), cervical Cervical radiculitis BPH (benign prostatic hyperplasia) Afib Arthritis Surgical History History of total right knee replacement Status post left knee replacement Hx of colonoscopy Social History Housing: House Alcohol intake: former Patient Tobacco Use Status: Never used Tobacco e-Cigarette/Vaping Use: Never Used Second Hand Smoke Exposure: Yes service: Yes Current occupational status: employed 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 [employer] Current occupational exposures/hazards: No Cognitive needs: No Hearing needs: No Vision needs: No Questionnaire Thrive Questionnaire Date Thrive assessed: 04/01/24 I am a: Patient What is your living situation today?: I have a steady place to live Within the past 12 months, did the food you bought not last and you didn't have the money to get more?: Never true Within the past 12 months, did you worry whether your food would run out before you got money to buy more?: Never true Do you have trouble paying for medicines?: No Do you have trouble getting transportation to medical appointments?: No Do you have trouble paying your heating and electricity bill?: No Do you have trouble taking care of your child, family member or friend?: No Do you have trouble with day-to-day activities such as bathing, preparing meals, shopping, managing finances, etc.?: No Are you currently unemployed and looking for a job?: No Are you interested in more education?: No Please select the resources that you would like help with: None Currently or been in a relationship where the following occur: I choose not to answer THRIVE Score: 0 AUDIT C Alcohol Use Questionnaire (AUDIT-C) 2. How many drinks containing alcohol do you have on a typical day when you are drinking?: 1 or 2 3. How often do you have six or more drinks on one occasion?: Never Total Score: 0 VERENICE-7 AMB Questionnaire VERENICE-7 Date VERENICE - 7 assessed: 08/22/23 Source: Developed by Drs. Lopez Maxwell, Cristela Gunderson, Yung Arreola and colleagues, with an educational heydi from [employer]. Physical exam (Primary Care) Vital Signs: Last Vital Signs Temp 97.6 F 08/27/24 08:55 Pulse 65 08/27/24 08:55 Resp 14 08/27/24 08:55 BP 126/88 08/27/24 08:55 Pulse Ox 98 08/27/24 08:55 Oxygen Delivery Method Room Air 08/27/24 08:55 BMI result Body Mass Index 30.4 Tobacco/Smoking Status: Tobacco use Status Tobacco use date assessed 05/09/24 08/27/24 08:53 Patient Tobacco Use Status Never used Tobacco 08/27/24 08:53 e-Cigarette/Vaping Use Never Used 08/27/24 08:53 Thrive Assessment: Date of Thrive Assessment Date Thrive assessed 04/01/24 08/27/24 08:53 Currently or been in a relationship where the following occur: I choose not to answer Coding Level of Care Code Est Pt Level 4 (02109) Complex EM visit Add On G2211 Diagnoses Mass of right lower leg R22.41 Laterality: right Lumbar radiculopathy M54.16 Bilateral groin pain R10.31; R10.32 Type 2 diabetes mellitus with other specified complication, without long-term current use of insulin E11.69 Diabetes mellitus shelter insulin use: without long term care social worker use Diabetes mellitus complication status: with other specified complication Paroxysmal atrial fibrillation I48.0 Assessment & Plan Assessment & Plan (1) Lower leg mass: Code(s): R22.40 - Localized swelling, mass and lump, unspecified lower limb Category: Medical Qualifiers: Laterality: right Qualified Code(s): R22.41 - Localized swelling, mass and lump, right lower limb (2) Lumbar radiculopathy: Code(s): M54.16 - Radiculopathy, lumbar region Category: Medical (3) Bilateral groin pain: Code(s): R10.31 - Right lower quadrant pain; R10.32 - Left lower quadrant pain Category: Medical (4) Type 2 diabetes mellitus: Code(s): E11.9 - Type 2 diabetes mellitus without complications Category: Medical Qualifiers: Diabetes mellitus shelter insulin use: without long term care social worker use Diabetes mellitus complication status: with other specified complication Qualified Code(s): E11.69 - Type 2 diabetes mellitus with other specified complication (5) Paroxysmal atrial fibrillation: Code(s): I48.0 - Paroxysmal atrial fibrillation Category: Medical Plan DM-well controlled on current medications Right tibial mass, right foot mass-us ordered Bilateral groin pain, right> left-hernia suspected. CT ordered Labs ordered Orders: Orders CT pelvis wo/w IV con 08/27/24 R10.31 - Right lower quadrant pain, R10.32 - Left lower quadrant pain US Extremity Nonvas Limited RT 08/27/24 R22.40 - Localized swelling, mass and lump, unspecified lower limb Hemoglobin A1c 1 Month E11. - Type 2 diabetes mellitus with other specified complication, I10 - Essential (primary) hypertension Hemoglobin A1c 4 Months . - Type 2 diabetes mellitus with other specified complication Microalbumin, Random (w Creat) 4 Months . - Type 2 diabetes mellitus with other specified complication Lyme IgG/IgM w/reflex to WB 1 Month . - Type 2 diabetes mellitus with other specified complication, I10 - Essential (primary) hypertension Basic Metabolic Panel 1 Month . - Type 2 diabetes mellitus with other specified complication, I10 - Essential (primary) hypertension Comprehensive Met. Panel 4 Months E11.69 - Type 2 diabetes mellitus with other specified complication Lipid Panel 4 Months E11.69 - Type 2 diabetes mellitus with other specified complication
[2024-08-27 08:55] VITALS: BP 126/88; PULSE 65; RESP 14; TEMP 36.4; O2SAT 98; BMI 30.4
== END 2024-08-27 09:19 | disposition home or self-care (01) ==
LOC: HO.HMCFM 08:48
PROVIDERS: PCP Internal Medicine; Visit Provider Internal Medicine
DX: R22.41 Localized swelling, mass and lump, right lower limb (principal); E11.69 Type 2 diabetes mellitus with other specified complication; I48.0 Paroxysmal atrial fibrillation; M54.16 Radiculopathy, lumbar region; R10.31 Right lower quadrant pain; R10.32 Left lower quadrant pain

== ENCOUNTER 2024-10-03 07:54 | Outpatient (REF) | payer OTHER, SELFPAY ==
--- OUTSIDE RECORDS SUMMARY | 2024-10-03 07:56 | XMS_ITS | Encounter Summary ---
Author Organization [facility] [place] [address] Care Team Providers Care Radar Signal Processing Engineer Name Role Phone Negra Dodd MD Primary Care Provider Reason for Visit * Reason Onset Date Comments Procedure 08/27/2024 Ivonne Procedu re w/ Dr. Molsey at [facility] Encounter Details Date Type Department Care Team (Late st Contact Info) Description 08/27/2024 Telephone [facility] [address] [facility] [address] [place] [address] Leyda Mosley MD [address] [facility] [address] [place] [address] Procedure (Ivonne Barclay w/ Dr. Mosley at [facility]) Social History Tobacco Use Types Packs/Day Years [...] as of this encounter Progress Notes * KAELA Zuniga - 10/01/2024 10:43 AM EDT Peer to peer denied - does not meet criteria has not has a bleeding issue where he had to go to theER, nor has he required transfusion. * Dharmesh Escobar MA - 09/26/2024 3:12 PM EDT Ludivina from [facility] PEER TO PEER DEPT called, peer to peer scheduled for this Monday, 10/01 between 7:30-12. I provided Katherine Kohli PA-C's direct line provided. * Dharmesh Escobar MA - 09/26/2024 3:02 PM EDT Called [facility] Peer to Peer dept, left message to call back to schedule follow up * KAELA Zuniga - 09/25/2024 3:22 PM EDT I have called twice put on hold both times for > 15 mins Can you try ot set up peer to peer next Fernandoley to be approved Hasbled score 1 * Roz Maldonado - 09/12/2024 12:16 PM EDT Prior authorization initiated for cpt code 98570, request is currently pending for medical review. Pending case number is [id number] * Chantal Campbell - 08/27/2024 2:43 PM EDT Watchman as inpatient [id number] Dx Afib I48.11 w/ SR at [facility] - I do not have a date Celestina wants to make sure he gets approved first for Watchman documented in this encounter Plan of Treatment Upcoming Encounters Date Type Department Care Team (Late st Contact Info) Description 12/02/2024 8:10 AM EDT Office Visit [facility] [address] [facility] [address] [place] [address] Celestina Kohli PA [address] [place] [address] documented as of this encounter Visit Diagnoses Not on filedocumented in this encounter Care Teams Radar Signal Processing Engineer Relationship Specialty Start Date End Date Negra Dodd MD [address] [place] [address] [address] [place] [address] PCP - General Internal Medicine 05/27/24 documented as of this encounter
--- OUTSIDE RECORDS SUMMARY | 2024-10-03 07:56 | XMS_ITS | Clinical Summary ---
Author Organization [facility] Address [address] [place] [address] Care Team Providers Care Wax Room Supervisor Name Role Phone Unknown, Primary Care Provider [...] season) 2023 06/05/2020, 05/08/2020 Influenza Vaccine (#1) 2024 2, 12/10/2020, 11/15/2019, Additional history exists RSV Adult > 60+ Yrs or (1 - 1-dose 75+ series) 2032 Shingrix-Zoster Vaccine Completed 2020, 01/04 Hepatitis B Vaccines Aged Out No long er eligible based on patient's age to complete this topic RSV Ped < 20 months Aged Out No longe r eligible based on patient's age to complete this topic Care Teams Wax Room Supervisor Relationship Specialty Start Date End Date Unknown, PCP - General 11/09/22
--- OUTSIDE RECORDS SUMMARY | 2024-10-03 07:56 | XMS_ITS | Clinical Summary ---
Author Organization Located Within [facility] Address [address] [place] [phone] Phone Care Team Providers Care Technical Account Executive Name Role Phone Negra Molina MD Primary Care Provider Social History Tobacco Use Types Packs/Day Years Used Date Smoking Tobacco: Never Assessed Education Answer Date Recorded Are you interested in more education? Not on donaldo e 07/01/2022 Are you concerned about learning? Not on file 07/01/2022 No 07/01/2022 No 07/01/2022 Digital Access Answer Date Recorded No 07/30/2022 No 07/30/2022 No 07/30/2022 Reliable internet access at home? Not on file 07/30/2022 Device with a working camera? Not on file Sex and Gender Information Value Date Recorded Sex Assigned at Not on file Legal Sex Male 3:29 PM EST Gender Identity Not on file Sexual Orientation Not on file Plan of Treatment Health Maintenance Due Date Last Done Comments LIPID PANEL 1957 DEPRESSION SCREENING 1969 SMOKING Hx and SMOKELESS TOBACCO SCREENING 1970 HEPATITIS C SCREENING 1975 COLOGUARD 2002 COLONOSCOPY 2002 COLORECTAL CANCER SCREENING 2002 FIT TEST 2002 FOBT 2002 SIGMOIDOSCOPY 2002 VIRTUAL COLONOSCOPY 2002 PNEUMOCOCCAL VACCINES (50+ years) (3 of 3 - PCV20 or PCV21) 12/26/2019 12/25/2014, 12/17/2012, 10/16/2007 Adult Td,Tdap Booster 02/16/2021 02/16/2011 , 09/15/2005 COVID-19 VACCINE (2 - 2023-2 5 season) 2023 05/08/2020 RSV VACCINE (1 - 1-dose 75+ series) 2032 ZOSTER VACCINES Completed 2020, 01/05/2020 HEPATITIS A VACCINES Aged Out No long er eligible based on patient's age to complete this topic HIB VACCINES Aged Out No longer eligi ble based on patient's age to complete this topic MENINGOCOCCAL VACCINES (ACWY) Aged Out No longer eligible based on patient's age to complete this topic MENINGOCOCCAL VACCINES (B) Aged Out N o longer eligible based on patient's age to complete this topic Medical Devices Not on file Insurance [facility] POS EPO [facility] Address: [place] [address] [facility] POS EPO [facility] E[facility] [employer] [facility] EPO [facility] POS EPO [facility] POS EPO Care Teams Technical Account Executive Relationship Specialty Start Date End Date Negra Molina MD PCP - General Internal Medicine 04/09/20 Additional Source Comments The information contained in this document represents components of the legal health record. It is not the complete legal health record.Loc[facility]
[2024-10-03 11:28] LABS: Hemoglobin A1C 152.3433 umol/L; Total Hemoglobin (HGBA1C) 3859.0796 umol/L
[2024-10-03 12:11] LABS: Alanine Aminotransferase 38 U/L (0-40); Albumin Level 4.2 g/dL (3.5-5.0); Alkaline Phosphatase 68 U/L (39-117); Anion Gap 10 (12-20); Aspartate Amino Transferase 33 U/L (5-37); Blood Urea Nitrogen 18 mg/dL (9-16); Calcium 9.1 mg/dL (8.4-10.2); Carbon Dioxide 31 mmol/L (22-29); Chloride 103 mmol/L (96-108); Cholesterol 145 mg/dL (<200); Estimated Glomerular Filt Rate > 60; HDL Cholesterol 44 mg/dL (>40); Potassium 3.6 mmol/L (3.3-5.1); Sodium 140 mmol/L (135-145); Total Protein 7.4 g/dL (6.5-8.0); Triglycerides 118 mg/dL (<150)
[2024-10-03 12:17] LABS: Microalbum/Creatinine Ratio Ur 8.3 ug/mg cr (<30)
[2024-10-04 10:50] LABS: Lyme Abs Screen <0.90 index
== END 2024-10-03 07:55 | disposition home or self-care (01) ==
LOC: HO.WFDLDS 07:54
PROVIDERS: Visit Provider Internal Medicine
DX: E11.69 Type 2 diabetes mellitus with other specified complication (principal); I10 Essential (primary) hypertension
CPT/HCPCS: 36415; 80053; 80061; 82043; 82570; 83036; 86617; 86618

== ENCOUNTER 2024-10-14 12:58 | Outpatient (REF) | payer OTHER, SELFPAY ==
--- NOTE | ~2024-10-14 | CT_ITS ---
EXAMINATION: CT ABDOMEN PELVIS WITH IV CONTRAST HISTORY: R10.31 - Right lower quadrant pain COMPARISON: Correlation is made with an abdominal ultrasound dated 03/15/2024. TECHNIQUE: CT scan of the abdomen and pelvis was performed following administration of 85 mL Omnipaque 350 using standard departmental protocol. Coronal and sagittal reformatted images were generated and reviewed. The patient received oral contrast material. This CT exam was performed with one or more of the following dose reduction techniques: automated exposure control, adjustment of the mA and/or kV according to patient size, use of iterative reconstruction technique. DLP: 737 mGy-cm FINDINGS: LOWER CHEST: The visualized lung bases are clear. There is no pleural effusion. CARDIOVASCULATURE: The heart is normal in size. There is no pericardial effusion. LIVER: The liver is normal in size and contour. No liver mass is identified. The hepatic and portal veins are patent. GALLBLADDER / BILE DUCTS: The gallbladder is unremarkable. There is no intra or extrahepatic biliary ductal dilatation. SPLEEN: The spleen is normal in size. No focal splenic lesion is identified. PANCREAS: The pancreas is unremarkable in appearance. ADRENAL GLANDS: Within normal limits. KIDNEYS/RETROPERITONEUM: No renal calculi are identified. There is no hydronephrosis. There is a 5.1 cm cyst at the upper pole of the right kidney and a 1.5 cm cyst at the lower pole. There is scarring at the lower pole of the right kidney. The left kidney demonstrates a 1.1 cm cyst at the lower pole. LYMPH NODES: No abdominal or pelvic lymphadenopathy. VASCULATURE: The abdominal aorta is normal in caliber. MESENTERY/PERITONEUM: No free fluid. No masses. There is no free intraperitoneal gas. STOMACH: The stomach is collapsed, limiting evaluation. SMALL BOWEL: The small bowel is normal in caliber. COLON: There is a large amount of stool throughout the colon. APPENDIX: Normal. URINARY BLADDER/PELVIC ORGANS: The urinary bladder is unremarkable. The prostate is normal in size. BONES / SOFT TISSUES: No hernia is appreciated. There is degenerative disc disease of the spine. CT/CT abdomen pelvis w IV con IMPRESSION: Large amount of stool throughout the colon. Electronically signed by: Lopez Castro MD 10/15/2024 07:29 AM EDT RP
--- OUTSIDE RECORDS SUMMARY | 2024-10-14 13:04 | XMS_ITS | Clinical Summary ---
Author Organization [facility] Address [address] [place] [id number] Phone Care Team Providers Care Lecturer Of Portuguese Name Role Phone Negra Molina MD Primary [...] topic Medical Devices Not on file Insurance [facility]PO [facility] EPO [facility] [employer]PO [facility] POS EPO Care Teams Lecturer Of Portuguese Relationship Specialty Start Date End Date Negra Molina MD PCP - General Internal Medicine 04/09/20 Additional Source Comments The information contained in this document represents components of the legal health record. It is not the complete legal health record.[facility]
--- OUTSIDE RECORDS SUMMARY | 2024-10-14 13:04 | XMS_ITS | Clinical Summary ---
Author Organization [facility] Address [address] [place] [address] Care Team Providers Care Director Of Sleep Name Role Phone Unknown, Primary Care Provider [...] to complete this topic Care Teams Director Of Sleep Relationship Specialty Start Date End Date Unknown, PCP - General 11/09/22
--- OUTSIDE RECORDS SUMMARY | 2024-10-14 13:04 | XMS_ITS | Clinical Summary ---
Author Organization [address] [place] [address] Address [address] [place] [address] Phone Care Team Providers Care Twine Reeling Machine Operator Name Role Phone Negra Dodd MD Primary Care Provider [phone] Allergies No known active allergies Medications blood sugar diagnostic (ONETOUCH ULTRA TEST MISC) Test glucose once weekly 11/15/19 Active OneTouch Ultra Test test strip Check blood glucose once weekly 11/15/19 20 Active multivit-min/iro n/folic acid/K (ADULTS MULTIVITAMIN ORAL) Take 1 tablet by mouth daily. Active apixaban (ELIQUIS) 5 mg tablet Take 5 mg by mouth 2 times daily. 08/31/19 23 Active azelastine (ASTELIN) 137 mcg (0.1 %) nasal spray 2 Puffs by Nasal route 2 times daily. 09/29/19 23 Active chlorthalidone (HYGROTON) 25 mg tablet Take 1 Tablet by mouth daily. Active fluticasone propionate (FLONASE) 50 mcg/actuation nasal spray 2 Sprays by Nasal route daily. 04/27/19 21 Active gabapentin (NEURONTIN) 800 mg tablet Take 1 Tablet by mouth 2 times daily. 01/24/20 19 Active rosuvastatin (CRESTOR) 40 mg tablet Take 1 Tablet by mouth daily. 08/07/19 24 Active semaglutide (Ozempic) 0.25 mg or 0.5 mg(2 mg/1.5 mL) injection pen Inject into the skin once a week. Active tamsulosin (FLOMAX) 0.4 mg 24 hr capsule TAKE 1 CAPSULE DAILY 02/14/20 20 Active ezetimibe (ZETIA) 10 mg tablet TAKE 1 TABLET BY MOUTH EVERY DAY 90 tablet 3 10/12/19 25 Active ezetimibe (ZETIA) 10 mg tablet TAKE 1 TABLET BY MOUTH EVERY DAY 08/31/19 24 025 Discontinued Active Problems Problem Noted Date Diagnosed Date Implantable loop recorder present 06/06/2024 Coronary artery disease invo lving [place] coronary artery of [place] heart without angina pectoris 08/07/2023 Hyperlipidemia 08/07/2023 Paroxysmal atrial fibrillation ([facility] V24, [facility] V28) 09/01/2022 Syncope and collapse 11/04/2020 Obstructive sleep apnea 02/26/2020 Overview (01/19/2024): [facility] Home Sleep Apnea Test: Date 02/18/2020; [...] (LV H) 09/26/2016 Type 2 diabetes mellitus, co ntrolled ([facility] V24, [facility] V28) 03/30/2015 Cardiomegaly 07/04/2012 BPH (benign prostatic hyperplasia) 06/14/2012 Diverticulitis of colon without hemorrhage 11/22 Overview (01/19/2024): Incidental finding at colonoscopy 11/23/2007. Laryngeal spasm 12/28/2006 Allergic rhinitis 09/15/2005 Cervicalgia 09/15/2005 Overview (01/19/2024): Disc Degeneration of lumbar or lumbosacral interverte bral disc 09/15/2005 Essential hypertension, benign 09/15/2005 Overweight 09/15/2005 Pure hypercholesterolemia 09/15/2005 Encounters Date Type Department Care Team Description 08/27/2024 Telephone [facility] [address] [facility] [address] [place] [address] Leyda Mosley MD Procedure (Watchman Procedure w/ Dr. Mosley at [facility]) from Last 3 Months Immunizations Name Administration [...] HISTORICAL LUMB LAMINECTOMY; COMMENT: COLONOSCOPY 11/23/2007 PROCEDURE: AR COLONOSCOPY FLX DX W/COLLJ SPEC WHEN PFRMD; [...] years. Type 2 diabetes mellitus, co ntrolled ([facility] V24, [facility] V28) 03/30/2015 DX:Type 2 diabetes mellitus , controlled ([facility]) Flexor tenosynovitis of finger 07/28/2016 D X:Flexor [...] Comments Father (Age 82) Kidney george or, [place] at 41, CABG 53, carotid endarterectomy, RENAL CA, neuropathy Maternal Grandfather (Age 88) CH F Maternal Grandmother (Age 91) CH F Mother Alive Thyroid cancer; back prob; dementia Paternal Grandfather (Age 68) PA Paternal Grandmother (Age 91) FT T; neuropathy [...] 45 06/28/2024 10:49 AM EDT Temperature 36.4 C (97.6 F) 06/28/2024 10:49 AM EDT Respiratory Rate 18 06/28/2024 10:49 AM EDT Oxygen Saturation 94% 06/28/2024 10:49 AM EDT Inhaled Oxygen Concentration - - Weight 109 kg (240 lb) 06/28/2024 10:49 AM EDT Height 190.5 cm (6' 3 ) 06/28/2024 10:49 AM EDT Body Mass Index 30 06/28/2024 10:49 AM EDT Plan of Treatment Upcoming Encounters Date Type Department Care Team (Late st Contact Info) Description 12/02/2024 8:10 AM EDT Office Visit [facility] [address] [place] [id number] Celestina Kohli PA [address] [place] [address] Health Maintenance Due Date Last Done Comments Diabetes: Annual Foot Exam 02/22/2020 02/21/2019 Diabetes: Annual Retina Eye Exam 12/05/2020 12/06/2019 Diabetes: Annual Urine Albumin-Creatinine Ratio (uACR) 02/11/2022 10/09/2018 Diabetes: Blood Sugar Control Test (HGBA1C) 02/11/2022 11/15/2019 Social Influencers of Health Screening 02/11/2022 Falls Risk Assessment 2022 COVID-19 Vaccine ( season) 2023 01/25/2021, 06/05/2020, 05/08/2020 Cholesterol Screening (Lipid Panel) 02/16/2024 02/15/2019 Depression Screening 03/06/2024 Influenza Vaccine (#1) 2024 , 01/04/2022, 12/10/2020, Additional history exists Diabetes: Annual GFR (Glomerular Filtration Rate) 07/31/2025 07/31/2024, 09/05/2022 Hypertension/CHF/CAD Annual BMP Blood Test 07/31/2025 07/31/2024, 09/05/2022 Colorectal Cancer Screening: Colonoscopy 04/23/2028 04/23/2018 RSV Immunization Adult Patients (1 - 1-dose 75+ series) 2032 DTaP,Tdap,and Td Vaccines (4 - Td or [...] this topic Medical Devices Implanted Type Area Merchandise Presentation Associate Device Identifier Shelf Expiration Date Model / Serial / Lot [employer]sci[employer]Crm [id number] Implanted:03/2020 (Quantity not on file) Cardiac Loop Recorder [employer] [facility] [id number] / [id number] / Procedures Procedure Name Priority Date/Time Associated Diagnosis Comments COMPREHENSIVE METABOLIC PANEL Routine 07/31/2024 8:34 AM EDT Essential hypertension, benign Elevated liver enzymes DIABETES EYE EXAM Routine 12/06/2019 HEMOGLOBIN A1C Routine 11/15/2019 HEPATITIS C SCREENING Routine 09/23/2019 DIABETES FOOT EXAM Routine 02/21/2019 LIPID PANEL Routine 02/15/2019 URINE ALBUMIN CREATININE RATIO Routine 10/09/2018 COLONOSCOPY Routine 04/23/2018 from Last 3 Months or Most Recently Relevant to Health Maintenance Results * (ABNORMAL) Comprehensive metabolic panel (07/31/2024 8:34 AM EDT) Sodium 138 133 - 145 mmol/L LAB CHEMISTRY METHOD 07/31/2024 10:19 AM [facility] Potassium 3.7 3.5 - 5.5 mmol/L LAB CHEMISTRY METHOD 07/31/2024 10:19 AM [facility] Chloride 101 96 - 110 mmol/L LAB CHEMISTRY METHOD 07/31/2024 10:19 AM [facility] CO2 30 21 - 32 mmol/L LAB CHEMISTRY METHOD 07/31/2024 10:19 AM [facility] Anion Gap 7 3 - 11 LAB CHEMISTRY METHOD 07/31/2024 10:19 AM [facility] Glucose 117(H) 70 - 100 mg/dL LAB CHEMISTRY METHOD 07/31/2024 10:19 AM [facility] BUN 21 5 - 25 mg/dL LAB CHEMISTRY METHOD 07/31/2024 10:19 AM [facility] Creatinine 1.07 0.70 - 1.30 mg/dL LAB CHEMISTRY METHOD 07/31/2024 10:19 AM [facility] eGFR 76 >=60 mL/min/1. 73m2 LAB CHEMISTRY METHOD 07/31/2024 10:19 AM [facility] Comment:Calculation based on the Chronic Kidney Disease Epidemiology Collaboration (CKD-EPI) equation refit without adjustment for race. BUN/Creatinine Ratio 19.6 LAB CHEMISTRY METHOD 07/31/2024 10:19 AM [facility] Calcium 9.4 8.5 - 10.5 mg/dL LAB CHEMISTRY METHOD 07/31/2024 10:19 AM [facility] AST (SGOT) 26 10 - 42 unit/L LAB CHEMISTRY METHOD 07/31/2024 10:19 AM [facility] ALT (SGPT) 43 10 - 60 unit/L LAB CHEMISTRY METHOD 07/31/2024 10:19 AM [facility] Alkaline Phosphatase 83 42 - 121 unit/L LAB CHEMISTRY METHOD 07/31/2024 10:19 AM [facility] Total Protein 7.5 6.0 - 8.0 g/dL LAB CHEMISTRY METHOD 07/31/2024 10:19 AM [facility] Albumin 3.5 3.2 - 5.0 g/dL LAB CHEMISTRY METHOD 07/31/2024 10:19 AM [facility] Total Bilirubin 0.3 0.0 - 1.4 mg/dL LAB CHEMISTRY METHOD 07/31/2024 10:19 AM [facility] Blood Venous blood specimen / Unknown Venipuncture / Unknown 07/31/2024 8:34 AM EDT 07/31/2024 8:34 AM EDT Celestina SHERWOOD LAB BLOOD ORDERABLES Final Resul t [facility] [address] [place] [address], * Diabetes Eye Exam (12/06/2019) Diabetes: Annual Retina Eye Exam Abstracted us Historical Provider HEALTH MAINTENANCE Final Result * Hemoglobin A1c (11/15/2019) Hemoglobin A1C 6.3 <=6.5 % Blood Venous blood specimen / Unknown Historical Provider LAB BLOOD ORDERABLES Akanksha l Result * Hepatitis C Screening (09/23/2019) Pathologist [facility] Hepatitis C Screening Abstracted [facility] Provider HEALTH MAINTENANCE Final Result * Diabetes Foot Exam (02/21/2019) [facility] Diabetes: Annual Foot Exam Abstracted [facility] Provider HEALTH MAINTENANCE Final Result * Lipid panel (02/15/2019) [facility] LDL/HDL Ratio 4 0 - 4 Triglycerides 142 0 - 150 mg/dL Cholesterol 163 0 - 200 mg/dL HDL 45 >=40 mg/dL LDL Cholesterol 90 0 - 100 mg/dL Blood Venous blood specimen / Unknown Result [facility] Provider LAB BLOOD ORDERABLES Akanksha l Result * Urine Albumin Creatinine Ratio (10/09/2018) [facility] Urine Albumin Creatinine Ratio Abstracted Result [facility] Provider HEALTH MAINTENANCE Final Result * Colonoscopy (04/23/2018) [facility] Colonoscopy No Interpretation , Abstracted Anatomical Region Laterality Modality Other Result [facility] Provider HEALTH MAINTENANCE Final Result from Last 3 Months or Most Recently Relevant to Health Maintenance Insurance [place] [id number] [employer] Care Teams Twine Reeling Machine Operator Relationship Specialty Start Date End Date Negra Dodd MD [address] [place] [address] [phone] PCP - General Internal Medicine 05/27/24
[2024-10-14] MEDS: iohexoL 350 MG/ML 100 ML INFUS..BTL 85 ML IV (16:32)
[2024-10-14] MEDS: Barium Sulfate Oral (Mocha) 450 ML ORAL.SUSP 900 ML PO (16:33)
== END 2024-10-14 12:59 | disposition home or self-care (01) ==
LOC: HO.CT 12:58
PROVIDERS: PCP Internal Medicine; Visit Provider Internal Medicine
DX: R10.31 Right lower quadrant pain (principal); R10.32 Left lower quadrant pain; R19.4 Change in bowel habit; K41.90 Unilateral femoral hernia, without obstruction or gangrene, not specified as recurrent
CPT/HCPCS: 74177; Q9967

== ENCOUNTER → 2024-10-14 13:00 | Outpatient (BNV) | payer OTHER, SELFPAY | PROVIDERS: PCP Internal Medicine; Visit Provider Radiology Diagnostic Radiology | DX: R10.31 Right lower quadrant pain (principal) | CPT/HCPCS: 74177 ==

== ENCOUNTER 2024-10-18 14:30 | Outpatient (REF) | payer OTHER, SELFPAY ==
--- NOTE | ~2024-10-18 | US_ITS ---
CLINICAL HISTORY: R22.40 - Localized swelling, mass and lump, unspecified lower limb --- Additional Notes or Special Instructions: x2 right miller and right foot US right lower extremity nonvascular Comparison: None Findings: Sonographic evaluation in the area of clinical concern right medial mid calf demonstrates a complex cystic area with irregular borders measuring 6 x 3 x 5 mm. This show no internal flow. Sonographic evaluation of the right lateral midfoot demonstrates a cyst with septations measuring 1.8 x 0.9 x 1.9 cm just deep to the dermis. This also had no internal flow Impression: A slightly complex cystic lesion within the subcutaneous soft tissues of the right mid calf show no internal vascularity. A cystic lesion with septation in the right lateral foot just deep to the level of the dermis is also avascular. This document has been electronically signed by: Jose C Patel MD on 10/19/2024 13:55:46
--- OUTSIDE RECORDS SUMMARY | 2024-10-18 14:32 | XMS_ITS | Clinical Summary ---
Author Organization [facility] Address [address] [place] [phone] Phone Care Team Providers Care Electronic Plotting System Operator Name Role Phone Negra Molina MD Primary [...] topic Medical Devices Not on file Insurance [facility] POS EPO [facility] Address: [place] [address] [facility] POS EPO [facility] EPO [facility]PO [facility]PO [facility] EPO [employer] POS EPO [facility] POS EPO [facility] POS EPO Care Teams Electronic Plotting System Operator Relationship Specialty Start Date End Date Negra Molina MD PCP - General Internal Medicine 04/09/20 Additional Source Comments The information contained in this document represents components of the legal health record. It is not the complete legal health record.[facility]
--- OUTSIDE RECORDS SUMMARY | 2024-10-18 14:32 | XMS_ITS | Clinical Summary ---
Author Organization [facility] Address [address] [place] [address] Care Team Providers Care Suspender Maker Name Role Phone Unknown, Primary Care Provider [...] age to complete this topic Care Teams Suspender Maker Relationship Specialty Start Date End Date Unknown, PCP - General 11/09/22
== END 2024-10-18 14:31 | disposition home or self-care (01) ==
LOC: HO.US 14:30
PROVIDERS: PCP Internal Medicine; Visit Provider Internal Medicine
DX: R22.40 Localized swelling, mass and lump, unspecified lower limb (principal)
CPT/HCPCS: 76882

== ENCOUNTER → 2024-10-18 14:33 | Outpatient (BNV) | payer OTHER, SELFPAY | PROVIDERS: PCP Internal Medicine; Visit Provider Radiology Diagnostic Radiology | DX: R22.41 Localized swelling, mass and lump, right lower limb (principal) | CPT/HCPCS: 76882 ==

== ENCOUNTER 2024-12-30 08:31 | Outpatient (REF) | payer OTHER, SELFPAY ==
--- OUTSIDE RECORDS SUMMARY | 2024-12-30 08:51 | XMS_ITS | Clinical Summary ---
Author Organization [address] [facility] Address [address] [place] [address] Phone Care Team Providers Care Plier Worker Name Role Phone Negra Dodd MD Primary Care Provider [phone] Allergies No known active allergies Medications blood [...] capsule TAKE 1 CAPSULE DAILY 0 Active ezetimibe (ZETIA) 10 mg tablet TAKE 1 TABLET DAILY 90 tablet 3 5 Active Vitamin C tablet Take 1 tablet (100 mg total) by mouth 1 (one) time each day. Active cholecalciferol (VITAMIN D-3) 25 mcg (1,000 unit) tablet Take 1 tablet (1,000 Units total) by mouth 1 (one) time each day. Active Active Problems Problem Noted Date Diagnosed Date Implantable loop recorder present 06/06/2024 Coronary artery disease invo lving [place] coronary artery of [place] heart without angina pectoris 08/07/2023 Hyperlipidemia 08/07/2023 Paroxysmal atrial fibrillation ([facility] V24, [facility] V28) 09/01/2022 Syncope and collapse 11/04/2020 Obstructive sleep apnea 02/26/2020 Overview (01/19/2024): [facility] Home Sleep Apnea Test: Date 02/18/2020; [...] 09/26/2016 Type 2 diabetes mellitus, co ntrolled ([facility] V24, [facility] V28) 03/30/2015 Cardiomegaly 07/04/2012 BPH (benign prostatic hyperplasia) 06/14/2012 Diverticulitis of colon without hemorrhage 11/22 Overview (01/19/2024): Incidental finding at colonoscopy 11/23/2007. Laryngeal spasm 12/28/2006 Allergic rhinitis 09/15/2005 Cervicalgia 09/15/2005 Overview (01/19/2024): Disc Degeneration of lumbar or lumbosacral interverte bral disc 09/15/2005 Essential hypertension, benign 09/15/2005 Overweight 09/15/2005 Pure hypercholesterolemia 09/15/2005 Encounters Date Type Department Care Team Description 12/02/2024 8:10 AM EDT Office Visit [facility] [address] [facility] [address] [place] [address] Celestina Kohli PA Paroxysmal atrial fibrillation (CMS/HCC V24, CMS/HCC V28) (Primary Dx); Coronary artery disease involving [place] coronary artery of [place] heart without angina pectoris; Mixed hyperlipidemia; Essential hypertension, benign from Last 3 Months Immunizations Immunization Administration Dates Next Due Influenza Quadravalent, MDCK [...] HISTORICAL LUMB LAMINECTOMY; COMMENT: COLONOSCOPY 11/23/2007 PROCEDURE: [place] COLONOSCOPY FLX DX W/COLLJ SPEC WHEN PFRMD; [...] years. Type 2 diabetes mellitus, co ntrolled ([facility] V24, [facility] V28) 03/30/2015 DX:Type 2 diabetes mellitus , controlled ([facility]) Flexor tenosynovitis of finger 07/28/2016 D [...] Sign Reading Time Taken Comments Blood Pressure 132/84 12/02/2024 8:07 AM EDT Pulse 55 12/02/2024 8:07 AM EDT Temperature 36.4 C (97.6 F) 06/28/2024 10:49 AM EDT Respiratory Rate 18 06/28/2024 10:49 AM EDT Oxygen Saturation 94% 06/28/2024 10:49 AM EDT Inhaled Oxygen Concentration - - Weight 117 kg (258 lb) 12/02/2024 8:07 AM EDT Height 190.5 cm (6' 3 ) 12/02/2024 8:07 AM EDT Body Mass Index 32.25 12/02/2024 8:07 AM EDT Plan of Treatment Health Maintenance Due Date Last Done Comments Diabetes: Annual Foot Exam 02/22/2020 02/21/2019 Diabetes: Annual Retina Eye Exam 12/05/2020 12/06/2019 Diabetes: Annual Urine Albumin-Creatinine Ratio (uACR) 02/11/2022 10/09/2018 Diabetes: Blood Sugar Control Test (HGBA1C) 02/11/2022 11/15/2019 Social Influencers of Health Screening 02/11/2022 Falls Risk Assessment 2022 Cholesterol Screening (Lipid Panel) 02/16/2024 02/15/2019 Depression Screening 03/06/2024 COVID-19 Vaccine ( season) 2024 01/25/2021, 06/05/2020, 05/08/2020 Influenza Vaccine (#1) 2024 , 01/04/2022, 12/10/2020, Additional history exists Diabetes: Annual GFR (Glomerular Filtration Rate) 07/31/2025 07/31/2024, 09/05/2022 Hypertension/CHF/CAD Annual BMP Blood Test 07/31/2025 07/31/2024, 09/05/2022 Colorectal Cancer Screening: Colonoscopy 04/23/2028 04/23/2018 RSV Immunization Adult Patients (1 - 1-dose 75+ series) 2032 DTaP,Tdap,and Td Vaccines (4 - Td or Tdap) 09/28/2032 09/28/2022, 02/16/2011, 09/15/2005 Hepatitis C Screening Completed 09/23/2019 Zoster Vaccines [...] this topic Medical Devices Implanted Type Area Wearing Apparel Folder Device Identifier Shelf Expiration Date Model / Serial / Lot Bsci-Crm [id number] Implanted:03/2020 (Quantity not on file) Cardiac Loop Recorder [employer] MGMT [id number] / [id number] / Procedures Procedure Name Priority Date/Time Associated Diagnosis Comments ECG 12-LEAD Routine 12/02/2024 8:21 AM EDT Paroxysmal atrial fibrillation (CMS/HCC V24, CMS/HCC V28) COMPREHENSIVE METABOLIC PANEL Routine 07/31/2024 8:34 AM EDT Essential hypertension, benign Elevated liver enzymes DIABETES EYE EXAM Routine 12/06/2019 HEMOGLOBIN A1C Routine 11/15/2019 HEPATITIS C SCREENING Routine 09/23/2019 DIABETES FOOT EXAM Routine 02/21/2019 LIPID PANEL Routine 02/15/2019 HM URINE ALBUMIN CREATININE RATIO Routine 10/09/2018 HM COLONOSCOPY Routine 04/23/2018 from Last 3 Months or Most Recently Relevant to Health Maintenance Results * ECG 12 lead (12/02/2024 8:21 AM EDT) Pathologist [facility] Ventricular Rate ECG 55 BPM GEMUSE Atrial Rate 55 BPM GEMUSE P-R Interval 162 ms GEMUSE QRS Duration 102 ms GEMUSE Q-T Interval 446 ms GEMUSE QTc 426 ms GEMUSE P Wave [place] 42 degrees GEMUSE R [place] 40 degrees GEMUSE T [place] 16 degrees GEMUSE ECG Interpretation Sinus bradycardia RSR' or QR pattern in V1 suggests right ventricular conduction delay When compared with ECG of 29-MAY-2024 09:42, RSR' pattern in V1 is now Present Confirmed by AYDEN BARRIOS ([id number]) on 12/05/2024 5:09:08 PM GEMUSE 12/02/2024 8:18 AM EDT 12/05/2024 5:09 PM EDT Celestina SHERWOOD ECG ORDERABLES Edited Result - Final GEMUSE * (ABNORMAL) Comprehensive metabolic panel (07/31/2024 8:34 AM EDT) [facility] Sodium 138 133 - 145 mmol/L LAB CHEMISTRY METHOD 07/31/2024 10:19 AM EDT [facility] Potassium 3.7 3.5 - 5.5 mmol/L LAB CHEMISTRY METHOD 07/31/2024 10:19 AM EDT [facility] Chloride 101 96 - 110 mmol/L LAB CHEMISTRY METHOD 07/31/2024 10:19 AM EDT [facility] CO2 30 21 - 32 mmol/L LAB CHEMISTRY METHOD 07/31/2024 10:19 AM EDT [facility] Anion Gap 7 3 - 11 LAB CHEMISTRY METHOD 07/31/2024 10:19 AM [facility] Glucose 117(H) 70 - 100 mg/dL LAB CHEMISTRY METHOD 07/31/2024 10:19 AM [facility] BUN 21 5 - 25 mg/dL LAB CHEMISTRY METHOD 07/31/2024 10:19 AM [facility] Creatinine 1.07 0.70 - 1.30 mg/dL LAB CHEMISTRY METHOD 07/31/2024 10:19 AM [facility] eGFR 76 >=60 mL/min/1. 73m2 LAB CHEMISTRY METHOD 07/31/2024 10:19 AM [facility] Comment:Calculation based on the Chronic Kidney Disease Epidemiology Collaboration (CKD-EPI) equation refit without adjustment for race. BUN/Creatinine Ratio 19.6 LAB CHEMISTRY METHOD 07/31/2024 10:19 AM [facility] Calcium 9.4 8.5 - 10.5 mg/dL LAB CHEMISTRY METHOD 07/31/2024 10:19 AM [facility] AST (SGOT) 26 10 - 42 unit/L LAB CHEMISTRY METHOD 07/31/2024 10:19 AM [facility] ALT (SGPT) 43 10 - 60 unit/L LAB CHEMISTRY METHOD 07/31/2024 10:19 AM [facility] Alkaline Phosphatase 83 42 - 121 unit/L LAB CHEMISTRY METHOD 07/31/2024 10:19 AM [facility] Total Protein 7.5 6.0 - 8.0 g/dL LAB CHEMISTRY METHOD 07/31/2024 10:19 AM [facility] Albumin 3.5 3.2 - 5.0 g/dL LAB CHEMISTRY METHOD 07/31/2024 10:19 AM [facility] Total Bilirubin 0.3 0.0 - 1.4 mg/dL LAB CHEMISTRY METHOD 07/31/2024 10:19 AM EDT [facility] Blood Venous blood specimen / Unknown Venipuncture / Unknown 07/31/2024 8:34 AM EDT 07/31/2024 8:34 AM EDT Result [facility] Celestina SHERWOOD LAB BLOOD ORDERABLES Final Resul t [facility] [address] [place] [address], [place] [phone] * Diabetes Eye Exam (12/06/2019) [facility] Diabetes: Annual Retina Eye Exam Abstracted Result [facility] Provider HEALTH MAINTENANCE Final Result * Hemoglobin A1c (11/15/2019) [facility] Hemoglobin A1C 6.3 <=6.5 % Blood Venous blood specimen / Unknown Result [facility] Provider LAB BLOOD ORDERABLES Akanksha l Result * Hepatitis C Screening (09/23/2019) Pathologist [facility] Hepatitis C Screening Abstracted Result [facility] Provider HEALTH MAINTENANCE Final Result * Diabetes Foot Exam (02/21/2019) [facility] Diabetes: Annual Foot Exam Abstracted Result [facility] Provider HEALTH MAINTENANCE Final Result * Lipid panel (02/15/2019) [facility] LDL/HDL Ratio 4 0 - 4 Triglycerides 142 0 - 150 mg/dL Cholesterol 163 0 - 200 mg/dL HDL 45 >=40 mg/dL LDL Cholesterol 90 0 - 100 mg/dL Blood Venous blood specimen / Unknown Result [facility] Provider LAB BLOOD ORDERABLES Akanksha l Result * Urine Albumin Creatinine Ratio (10/09/2018) Pathologist [facility] Urine Albumin Creatinine Ratio Abstracted Result [facility] Provider HEALTH MAINTENANCE Final Result * Colonoscopy (04/23/2018) Colonoscopy No Interpretation , Abstracted Anatomical Region Laterality Modality Other Historical Provider HEALTH MAINTENANCE Final Result from Last 3 Months or Most Recently Relevant to Health Maintenance Insurance [employer] Care Teams Plier Worker Relationship Specialty Start Date End Date Negra Dodd MD [address] [place] [address] [phone] PCP - General Internal Medicine 05/27/24
--- OUTSIDE RECORDS SUMMARY | 2024-12-30 08:51 | XMS_ITS | Clinical Summary ---
Author Organization [facility] Address [address] [place] [address] Care Team Providers Care Board Worker Name Role Phone Unknown, Primary Care Provider [...] 12/17/2012, 10/16/2007 COVID-19 Vaccine (3 - season) 2024 06/05/2020, 05/08/2020 Influenza Vaccine (#1) 2024 2, [...] age to complete this topic Care Teams Board Worker Relationship Specialty Start Date End Date Unknown, PCP - General 11/09/22
--- OUTSIDE RECORDS SUMMARY | 2024-12-30 08:51 | XMS_ITS | Clinical Summary ---
Author Organization [facility] Address [address] [place] [phone] Phone Care Team Providers Care Bar Staff Name Role Phone Negra Molina MD Primary [...] 12/25/2014, 12/17/2012, 10/16/2007 Adult Td,Tdap Booster 02/16/2021 02/16/2011, 006 INFLUENZA VACCINE (#1) 2024 0, 11/16/2018, 12/20/2017, Additional history exists COVID-19 VACCINE ( - 2024- season) 2024 05/08/2020 RSV VACCINE (1 - 1-dose 75+ [...] topic Medical Devices Not on file Insurance [facility] POS EPO [facility] POS EPO [facility] POS EPO [facility]PO [facility] POS [facility]PO [facility] POS [facility]PO [facility] EPO [facility] POS EPO [facility] POS EPO Care Teams Bar Staff Relationship Specialty Start Date End Date Negra Molina MD PCP - General Internal Medicine 04/09/20 Additional Source Comments The information contained in this document represents components of the legal health record. It is not the complete legal health record.[facility]
[2024-12-30 12:11] LABS: Anion Gap 10 (12-20); Blood Urea Nitrogen 18 mg/dL (9-16); Calcium 9.4 mg/dL (8.4-10.2); Carbon Dioxide 32 mmol/L (22-29); Chloride 101 mmol/L (96-108); Estimated Glomerular Filt Rate > 60; Potassium 3.6 mmol/L (3.3-5.1); Sodium 139 mmol/L (135-145)
== END 2024-12-30 08:32 | disposition home or self-care (01) ==
LOC: HO.WFDLDS 08:31
PROVIDERS: Visit Provider Internal Medicine
DX: E11.69 Type 2 diabetes mellitus with other specified complication (principal); I10 Essential (primary) hypertension
CPT/HCPCS: 36415; 80048; 83036